=== PATIENT | female | born 1945 | race Caucasian/White ===

== ENCOUNTER 2019-11-28 13:27 | Emergency (ER) | payer MEDICARE ==
[~2019-11-28] VITALS: Ht 152.4 cm; Wt 74.4 kg
[~2019-11-28 13:27] MED LIST: ACYCLOVIR400 MG PO; ASPIR 8181 MG PO; CALCIUM600 MG PO; CITALOPRAM HBR40 MG PO; COZAAR100 MG PO; HYDROCHLOROTHIA25 MG PO; IMODIUM A-D2 MG PO; LEVOTHYROXINE100 MCG PO; LOPERAMIDE2 MG PO; POTASSIUM CHLO10 MEQ PO; SIMVASTATIN20 MG PO; TRIAMTERENE-HC1 EAC3 PO; TYLENOL325 MG PO
== END 2019-11-28 18:00 | disposition short-term general hospital (02) ==
LOC: ED 13:27
DX: I74.2 Embolism and thrombosis of arteries of the upper extremities (principal); I10 Essential (primary) hypertension; Z87.891 Personal history of nicotine dependence; Z90.710 Acquired absence of both cervix and uterus; Z90.49 Acquired absence of other specified parts of digestive tract; Z90.89 Acquired absence of other organs; Z88.5 Allergy status to narcotic agent; Z88.0 Allergy status to penicillin; Z79.82 Long term (current) use of aspirin; Z79.899 Other long term (current) drug therapy
CPT/HCPCS: 36415; 73206; 80053; 85025; 99284-25; J1644; Q9967

== ENCOUNTER 2020-02-27 09:42 | Emergency (ER) | payer MEDICARE ==
[~2020-02-27] VITALS: Ht 152.4 cm; Wt 74.4 kg
--- OUTSIDE RECORDS SUMMARY | ~2020-02-27 | XMS | Encounter Summary ---
Demographics + + + | Address | [address] | | | [place] [address] | + + + | Home Phone | | + + + | Preferred Language | Unknown | + + + | Marital Status | | + + + | Protestant Affiliation | Unknown | + + + | Race | Unknown | + + + | Ethnic Group | Unknown | + + + Author + + + | Author | [facility] | | | and [place] | + + + | Organization | [facility] | | | and [place] | + + + | Address | Unknown | + + + | Phone | Unavailable | + + + Support + + + + + | Name | Relationship | Address | Phone | + + + + + | Elysia Norris | ECON | [place] | | | | | [address] | | + + + + + | Art Askew | ECON | [address] | | | | | [place], [place] | | | | | [address] | | + + + + + Care Team Providers + +------+ + | Care Spray Operator Name | Role | Phone | + +------+ + | Wei Wright MD | PCP | | + +------+ + Encounter Details +--------+ + + + + | Date | Type | Department | Care Team | Description | +--------+ + + + + | 08/13/ | Abstract | [facility] [place] | [facility], | | | 2012 | | GASTROENTEROLOGY | [address] | | | | | [address] [place] | [address] | | | | | [address] [place], [place] | [place], [place] | | | | | [address] | [address] | | | | | [phone] | | | +--------+ + + + + Social History + +-------+ +--------+------+ | Tobacco Use | Types | Packs/Day | Years | Date | | | | | Used | | + +-------+ +--------+------+ | Former Smoker | | | | | + +-------+ +--------+------+ + +---+---+---+ | Smokeless Tobacco: | | | | | Never Used | | | | + +---+---+---+ + + +---------+ + | Alcohol Use | Drinks/Week | oz/Week | Comments | + + +---------+ + | Yes | | | | + + +---------+ + + + + | Sex Assigned at | Date Recorded | | | | + + + | Not on file | | + + + documented as of this encounter Plan of Treatment Not on filedocumented as of this encounter Visit Diagnoses Not on filedocumented in this encounter"
--- OUTSIDE RECORDS SUMMARY | ~2020-02-27 | XMS | Encounter Summary ---
Demographics + + + | Address | [address] | | | [place] [address] | + + + | Home Phone | | + + + | Preferred Language | Unknown | + + + | Marital Status | | + + + | Worship Affiliation | Unknown | + + + | Race | Unknown | + + + | Ethnic Group | Unknown | + + + Author + + + | Author | [facility] | | | and [place] | + + + | Organization | [facility] | | | and [place] | + + + | Address | Unknown | + + + | Phone | Unavailable | + + + Support + + + + + | Name | Relationship | Address | Phone | + + + + + | Elysia Norris | ECON | [place] | | | | | [address] | | + + + + + | Art Askew | ECON | [address] | | | | | [place], [place] | | | | | [address] | | + + + + + Care Team Providers + +------+ + | Care Music Box Mechanic Name | Role | Phone | + +------+ + | Wei Wright MD | PCP | | + +------+ + Reason for Visit + +--------+ + | Reason | Onset | Comments | | | Date | | + +--------+ + | Diarrhea | 11/14/ | | | | 2013 | | + +--------+ + Encounter Details +--------+ + + + + | Date | Type | Department | Care Team | Description | +--------+ + + + + | 11/14/ | Telephone | [facility] | Lonnie Ramires MD | Diarrhea | | 2013 | | GASTROENTEROLOGY | [address] | | | | | [address] [facility] | [address] [place], [place] | | | | | [address] [place], [place] | [address] | | | | | [address] | | | | | | [phone] | | | +--------+ + + + [...] + + documented as of this encounter Miscellaneous Notes Telephone Encounter - Antoinette Juárez RN - 11/16/2013 10:50 AM PDTSpoke with patient. She is taking the dicyclomine 10 mg in am and one imodium later in day. Continues to have urgency almost every day usually one time a day after she eats. Is not up at night with diarrhea. She feels the dicyclomine is helping as she will have normal formed stools but at times will have urgency with watery stools. She is not taking a probiotic so will trial analisa t and will increase the dicyclomine to BID. She is leaving on a cruise in 2 weeks. If urge ncy does not decrease she will call. She will also try to take the fiber tabs as she has sto pped them. eleph one Encounter - Willem Delgado - 11/14/2013 3:09 PM PDTPatient called to give an update on symptoms. States she takes 2 diphenoxylate each day, one in morning and one at night. Al so takes dicyclomine once in the morning and loperanide mid day. Pt has been on a trip for t he past 6 days, and states she had 2 bouts with diarrhea. She is keeping a record of what sh e's eating. Has not drank any wine in the past few days. States it's usually triggered right after she eats. She ate 3 tsp of macaroni salad today and within 30 min had diarrhea. Pt at e 5 saltine crackers and had diarrhea again within 30 minutes. Pt has not had any accidents, because she figured out it happens about 30 min after eating. Once today she had stomach c ramps. Patient will not be home after 12:30pm tomorrow 11/15/13, you can reach her on either phone number listed. doc umented in this encounter Plan of Treatment Not on filedocumented as of this encounter Visit Diagnoses Not on filedocumented in this encounter"
--- OUTSIDE RECORDS SUMMARY | ~2020-02-27 | XMS | Encounter Summary ---
Demographics + + + | Address | [address] | | | [place] [address] | + + + | Home Phone | | + + + | Preferred Language | Unknown | + + + | Marital Status | | + + + | Pentecostal Affiliation | Unknown | + + + | Race | Unknown | + + + | Ethnic Group | Unknown | + + + Author + + + | Author | [facility] | | | and [place] | + + + | Organization | [facility] | | | and [place] | + + + | Address | Unknown | + + + | Phone | Unavailable | + + + Support + + + + + | Name | Relationship | Address | Phone | + + + + + | Elysia Norris | ECON | [place] | | | | | [address] | | + + + + + | Art Askew | ECON | [address] | | | | | [place] | | | | | [address] | | + + + + + Care Team Providers + +------+ + | Care Mixing Machine Feeder Name | Role | Phone | + +------+ + | Wei Wright MD | PCP | | + +------+ + Reason for Visit + + + | Reason | Comments | + + + | Follow-up | follow up right hand carpal tunnel dos: 04/09/2012- | + + + | Hand Pain | EPNP: Trigger finger right ring finger onset xSeptember 2011- | | | Bumps in the hand as well | + + + Encounter Details +--------+---------+ + + + | Date | Type | Department | Care Team | Description | +--------+---------+ + + + | 12/21/ | Office | [facility] [place] | Blaine Aggarwal, | Trigger finger | | 2012 | Visit | ORTHOPEDIC SURGERY | [address] | (Primary Dx) | | | | [address] | [place] | | | | | [place] | [address] | | | | | [address] | | | | | | [phone] | | | +--------+---------+ + + + Social History + +-------+ [...] + + documented as of this encounter Last Filed Vital Signs + + + + + | Vital Sign | Reading | Time Taken | Comments | + + + + + | Blood Pressure | - | - | | + + + + + | Pulse | - | - | | + + + + + | Temperature | 36.7 C (98.1 F) | 12/21/2012 10:32 AM | | | | | PDT | | + + + + + | Respiratory Rate | - | - | | + + + + + | Oxygen Saturation | - | - | | + + + + + | Inhaled Oxygen | - | - | | | Concentration | | | | + + + + + | Weight | 72.1 kg (159 lb) | 12/21/2012 10:32 AM | | | | | PDT | | + + + + + | Height | 152.4 cm (5') | 12/21/2012 10:32 AM | | | | | PDT | | + + + + + | Body Mass Index | 31.05 | 12/21/2012 10:32 AM | | | | | PDT | | + + + + + documented in this encounter Progress Notes Blaine Aggarwal MD - 12/22/2012 7:52 AM PDTPt has done very well s/p right carpal tunnel release last march but is here with a new complaint of triggering right ring finger She states the symptoms starting actually fairly soon after her recovery from CTR She has no other digits that are triggering but 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 On exam she has reproducible triggering right ring finger with locking No other digits are triggering today Well healed CTR scar with thenar eminence atrophy and intact palmar abduction and oppositio n strength Impression - right ring trigger finger Plan - right ring trigger finger release procedure under local 10 minutes face time spent today majority counseling regarding treatment for trigger finger - alternative of injections, risks of procedure with reasonable expectations for recovery All questions answered Tdocumented in this encounter Miscellaneous Notes Miscellaneous - MATHIEU CASTANON - 12/21/2012 12:00 AM PDT documented in this encounter Plan of Treatment Not on filedocumented as of this encounter Visit Diagnoses + + | Diagnosis | + + | Trigger finger - Primary Trigger finger (acquired) | + + documented in this encounter"
--- OUTSIDE RECORDS SUMMARY | ~2020-02-27 | XMS | Encounter Summary ---
Demographics + + + | Address | [address] | | | [place] [address] | + + + | Home Phone | | + + + | Preferred Language | Unknown | + + + | Marital Status | | + + + | Orthodox Affiliation | Unknown | + + + | Race | Unknown | + + + | Ethnic Group | Unknown | + + + Author + + + | Author | [facility] | | | and [place] | + + + | Organization | [facility] | | | and [place] | + + + | Address | Unknown | + + + | Phone | Unavailable | + + + Support + + + + + | Name | Relationship | Address | Phone | + + + + + | Elysia Norris | ECON | [place] | | | | | [address] | | + + + + + | Art Rivera | ECON | [address] | | | | | [place], [place] | | | | | [address] | | + + + + + Care Team Providers + +------+ + | Care Manager Small Business Name | Role | Phone | + +------+ + | Wei Wright MD | PCP | | + +------+ + Encounter Details +--------+ + + + + | Date | Type | Department | Care Team | Description | +--------+ + + + + | 01/18/ | Hospital | [facility] | Jasen Blaine Gayle, | | | 2012 | Encounter | MED CTR [facility] OP | MD [address] [facility] | | | | | [address] | [place], [place] | | | | | [place], [place] | [address] | | | | | [address] | | | | | | [phone] | | | +--------+ + + + [...] + + documented as of this encounter Medications at Time of Discharge + + + +---------+ + + | Medication | Sig | Dispensed | Refills | Start | End Date | | | | | | Date | | + + + +---------+ + + | acyclovir | Take 400 mg by mouth | | 0 | 11/27/19 | | | (ZOVIRAX) 400 MG | Daily. | | | 13 | | | tablet | | | | | | + + + +---------+ + + | CALCIUM PO | TABS | | 0 | 05/11/20 | | | | | | | 12 | | + + + +---------+ + + | cholestyramine | take one scoop in | | 0 | 02/23/20 | | | (QUESTRAN) 4 GM/DOSE | applesauce at | | | 11 | | | powder | bedtime | | | | | + + + +---------+ + + | | TABS | | 0 | 05/11/20 | | | HYDROCHLOROTHIAZIDE | | | | 12 | | | PO | | | | | | + + + +---------+ + + | LEVOTHYROXINE | Take 100 mcg by | | 0 | 05/11/20 | | | SODIUM | mouth Daily. | | | 12 | | + + + +---------+ + + | loperamide | | | 0 | 10/01/19 | | | (IMODIUM) 2 mg | | | | 13 | | | capsule | | | | | | + + + +---------+ + + | losartan (COZAAR) | Take 50 mg by mouth | | 0 | 05/11/20 | | | 50 mg tablet | Daily. | | | 12 | | + + + +---------+ + + | potassium chloride | Take 10 mEq by mouth | | 0 | 10/13/19 | | | (MICRO-K) 10 mEq CR | Daily. | | | 13 | | | capsule | | | | | | + + + +---------+ + + | simvastatin | Take 40 mg by mouth | | 0 | 05/11/20 | | | (ZOCOR) 40 mg tablet | Daily. | | | 12 | | + + + +---------+ + + | | | | 0 | 11/27/19 | | | triamterene-hydrochl | | | | 13 | | | orothiazide | | | | | | | (MAXZIDE-25) 37.5-25 | | | | | | | mg per tablet | | | | | | + + + +---------+ + + | citalopram | | | 0 | 11/28/19 | | | (CELEXA) 20 mg | | | | 13 | 3 | | tablet | | | | | | + + + +---------+ + + | | take 1-2 tablets by | | 0 | 04/06/20 | | | HYDROcodone-acetamin | mouth every 6 hours | | | 12 | 3 | | ophen (NORCO) 5-325 | as needed for pain | | | | | | mg per tablet | | | | | | + + + +---------+ + + | LEVOTHYROXINE | TABS | | 0 | 05/11/20 | | | SODIUM | | | | 12 | 3 | + + + +---------+ + + | Methylcellulose, | TABS | | 0 | 05/11/20 | | | Laxative, (CITRUCEL | | | | 12 | 3 | | PO) | | | | | | + + + +---------+ + + documented as of this encounter H&P Notes Blaine Aggarwal MD - 01/18/2013 8:22 AM [place], [place] [id number] Patient Name: MARILEE RIVERA Provider: Blaine Aggarwal MD Unit #: [id number] Location: [facility] #: [id number] : 1945 DATE: PREOPERATIVE HISTORY AND PHYSICAL DATE OF PROCEDURE: 01/18/2013 PATIENT IDENTIFICATION: Ms. Rivera is a 67-year-old female with a chief complaint of right ring trigger finger. HISTORY OF PRESENT ILLNESS: The patient is status post a right carpal tunnel release in 03/2012 and shortly after her recovery from that, she noted the onset of triggering in her r ing finger. 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 The triggering at first was intermittent a nd mild but has progressed to be significantly bothersome to her with daily locking, and anne quiñonez now wishes to proceed with right ring trigger finger release. PREVIOUS MEDICAL HISTORY 1. Hypertension. 2. Hypercholesterolemia. 3. Depression. CURRENT MEDICATION LIST: Includes 1. Celexa 20 mg p.o. daily. 2. Potassium chloride 10 mEq p.o. daily 3. Maxzide 37.5/25 one a day. 4. Cozaar 50 mg p.o. daily. 5. Zocor 40 mg p.o. daily. 6. Questran 4 g a day. ALLERGIES 1. PENICILLIN. 2. MORPHINE. 3. CODEINE. PREVIOUS SURGERIES 1. Hysterectomy in 1992. 2. Cholecystectomy last year. 3. Appendectomy 1963. 4. Right carpal tunnel release 03/2012. FAMILY HISTORY: Father at age 71 of liver failure. Mother age 58 of lymphoma. SOCIAL: She is with 3 children. She is healthy. Moderate consumer of alcohol. S he quit smoking 18 years ago. PHYSICAL EXAMINATION VITAL SIGNS: Temperature 122/80, pulse 64, respirations 14. HEENT: Atraumatic. Oropharynx clear. HEART: Regular rate and rhythm. LUNGS: Clear. ABDOMEN: Soft, nontender. EXTREMITIES: She has reproducible triggering of the right ring finger with locking. There are no other digits that are triggering. She has a well healed carpal tunnel release scar with positive thenar eminence atrophy, but intact palmar abduction and opposition. SKIN: Without rashes or lesions. IMPRESSION RIGHT RING TRIGGER FINGER. PLAN: Right ring trigger finger release. The goals of the surgery, the inherent risks and reasonable expectations for recovery are all discussed with the patient who understands and agrees with the plan. DICTATED BY: Blaine Aggarwal MD Orthopedics JOB #: [id number] EXT JOB #:[id number] <<Signature on File>> Blaine Aggarwal MD0 01/23/13 1021 <Electronically signed by Blaine Aggarwal MD> documented in this encounter Miscellaneous Notes Op Note - Blaine Aggarwal MD - 01/18/2013 12:59 [place] [address] Patient Name: MARILEE RIVERA Provider: Blaine Aggarwal MD Unit #: [id number] [id number] 1945 DATE: 01/18/2013 PREOPERATIVE DIAGNOSIS Right hand ring trigger finger. POSTOPERATIVE DIAGNOSIS RIGHT HAND RING TRIGGER FINGER. PROCEDURE PERFORMED: Right hand trigger finger release, ring finger. PROCEDURE IN DETAIL: After informed consent was obtained, the patient was taken to the ope rating room , appropriate timeout and surgical site was confirmed and surgical safety check list was completed. She underwent purely local anesthesia. After sterile prep and drape, an incision was made in her distal palmar crease centered over the 4th ray. A blunt dissectio n to the midline was carried out, and the neurovascular bundles protected with Ragnell retr actors. The A1 parker was identified. We incised the sheath and got a flush of fluid as thi s was inflamed. The A1 parker was release completely under direct vision, and with active f lexion and extension, it proved the triggering was resolved. This wound was irrigated and c losed with 4-0 nylon interrupted mattress sutures. sterile dressings were applied with a bu lky compressive hand bandage, and she was stable to Postanesthesia Recovery. Estimated bloo d loss less than 10 mL. DICTATED BY: Blaine Aggarwal MD Orthopedics JOB #: [id number] EXT JOB #:[id number] <<Signature on File>> Blaine Aggarwal MD0 01/23/13 1021 <Electronically signed by Blaine Aggarwal MD> documented in this encounter Plan of Treatment Not on filedocumented as of this encounter Visit Diagnoses Not on filedocumented in this encounter"
--- OUTSIDE RECORDS SUMMARY | ~2020-02-27 | XMS | Clinical Summary ---
Demographics + + + | Address | [address] | | | [place] [address] | + + + | Home Phone | | + + + | Preferred Language | Unknown | + + + | Marital Status | | + + + | Congregational Affiliation | Unknown | + + + | Race | Unknown | + + + | Ethnic Group | Unknown | + + + Author + + + | Author | [facility] | | | and [place] | + + + | Organization | [facility] | | | and [place] | + + + | Address | Unknown | + + + | Phone | Unavailable | + + + Support + + + + + | Name | Relationship | Address | Phone | + + + + + | Elysia Norris | ECON | [place] | | | | | [address] | | + + + + + | Art Askew | ECON | [address] | | | | | [place], [place] | | | | | [address] | | + + + + + Care Team Providers + +------+ + | Care Plastic Machine Operator Name | Role | Phone | + +------+ + | Wei Wright MD | PCP | | + +------+ + Allergies + + + +--------+ + | Active Allergy | Reactions | Severity | Noted | Comments | | | | | Date | | + + + +--------+ + | Codeine Sulfate | | | | | + + + +--------+ + | Morphine | | | | | + + + +--------+ + | Penicillins | | | | | + + + +--------+ + Medications + + + +---------+------+------+-------+ | Medication | Sig | Dispensed | Refills | Star | End | Statu | | | | | | t | Date | s | | | | | | Date | | | + + + +---------+------+------+-------+ | losartan (COZAAR) | Take 50 mg by mouth | | 0 | 09/1 | | Activ | | 50 mg tablet | Daily. | | | 3/20 | | e | | | | | | 12 | | | + + + +---------+------+------+-------+ | simvastatin | Take 40 mg by mouth | | 0 | 09/1 | | Activ | | (ZOCOR) 40 mg tablet | Daily. | | | 3/20 | | e | | | | | | 12 | | | + + + +---------+------+------+-------+ | | TABS | | 0 | 09/1 | | Activ | | HYDROCHLOROTHIAZIDE | | | | 3/20 | | e | | PO | | | | 12 | | | + + + +---------+------+------+-------+ | CALCIUM PO | TABS | | 0 | 09/1 | | Activ | | | | | | 3/20 | | e | | | | | | 12 | | | + + + +---------+------+------+-------+ | cholestyramine | take one scoop in | | 0 | 06/2 | | Activ | | (QUESTRAN) 4 GM/DOSE | applesauce at | | | 03/17 | | e | | powder | bedtime | | | 11 | | | + + + +---------+------+------+-------+ | acyclovir | Take 400 mg by mouth | | 0 | 10/29 | | Activ | | (ZOVIRAX) 400 MG | Daily. | | | 09/17 | | e | | tablet | | | | 13 | | | + + + +---------+------+------+-------+ | potassium chloride | Take 10 mEq by mouth | | 0 | 02/1 | | Activ | | (MICRO-K) 10 mEq CR | Daily. | | | 01/15 | | e | | capsule | | | | 13 | | | + + + +---------+------+------+-------+ | loperamide | | | 0 | 02/0 | | Activ | | (IMODIUM) 2 mg | | | | 11/15 | | e | | capsule | | | | 13 | | | + + + +---------+------+------+-------+ | | | | 0 | 03/3 | | Activ | | triamterene-hydrochl | | | | 1/20 | | e | | orothiazide | | | | 13 | | | | (MAXZIDE-25) 37.5-25 | | | | | | | | mg per tablet | | | | | | | + + + +---------+------+------+-------+ | LEVOTHYROXINE | Take 100 mcg by | | 0 | 09/1 | | Activ | | SODIUM | mouth Daily. | | | 3/20 | | e | | | | | | 12 | | | + + + +---------+------+------+-------+ | citalopram | Take 20 mg by mouth | | 0 | | | Activ | | (CELEXA) 20 mg | Daily. | | | | | e | | tablet | | | | | | | + + + +---------+------+------+-------+ | | Take 1 capsule by | | 0 | | | Activ | | triamterene-hydrochl | mouth every morning. | | | | | e | | orothiazide | | | | | | | | (DYAZIDE) 37.5-25 MG | | | | | | | | per capsule | | | | | | | + + + +---------+------+------+-------+ | Na Sulfate-K | Take 6 oz by mouth 2 | 1 | 0 | 12/1 | | Activ | | Sulfate-Mg Sulf | times daily. Take | Bottle | | 7/20 | | e | | (SUPREP BOWEL PREP) | 1st dose at 4PM And | | | 13 | | | | SOLN | 2nd dose at 8PM. The | | | | | | | | day prior to | | | | | | | | procedure | | | | | | + + + +---------+------+------+-------+ | dicyclomine | Take 1 capsule by | 30 | 0 | 01/3 | | Activ | | (BENTYL) 10 mg | mouth every morning. | capsule | | 0/20 | | e | | capsule | | | | 14 | | | + + + +---------+------+------+-------+ Active Problems + + + | Problem | Noted Date | + + + | CHOLECYSTITIS | | + + + | CHOLESTEROLOSIS OF THE GALLBLADDER | | + + + | POLYP, GALLBLADDER | | + + + Family History + + +------+ + | Medical History | Relation | Name | Comments | + + +------+ + | Alcohol abuse | Father | | | + + +------+ + | Cancer | Mother | | lymphoma | + + +------+ + | Breast cancer | Sister | | | + + +------+ + + +------+ + + | Relation | Name | Status | Comments | + +------+ + + | Father | | | | | | | (Age | | | | | 80) | | + +------+ + + | Mother | | | lymphoma | | | | (Age | | | | | 57) | | + +------+ + + | Sister | | Alive | | + +------+ + + Social History + +-------+ +--------+------+ [...] on file | | + + + Last Filed Vital Signs + + + + + | Vital Sign | Reading | Time Taken | Comments | + + + + + | Blood Pressure | 140/76 | 08/14/2013 8:32 AM | | | | | PST | | + + + + + | Pulse | 68 | 08/14/2013 8:32 AM | | | | | PST | | + + + + + | Temperature | 36.4 C (97.5 F) | 08/14/2013 8:32 AM | | | | | PST | | + + + + + | Respiratory Rate | 16 | 08/14/2013 8:32 AM | | | | | PST | | + + + + + | Oxygen Saturation | - | - | | + + + + + | Inhaled Oxygen | - | - | | | Concentration | | | | + + + + + | Weight | 75.8 kg (167 lb) | 08/14/2013 8:32 AM | | | | | PST | | + + + + + | Height | 152.4 cm (5') | 08/14/2013 8:32 AM | | | | | PST | | + + + + + | Body Mass Index | 32.61 | 08/14/2013 8:32 AM | | | | | PST | | + + + + + Plan of Treatment + + +-------+ + | Health Maintenance | Due Date | Last | Comments | | | | Done | | + + +-------+ + | Vaccine: | | | | | Dtap/Tdap/Td (1 - | 3 | | | | Tdap) | | | | + + +-------+ + | Vaccine: Zoster (1 | | | | | of 2) | 4 | | | + + +-------+ + | Breast Cancer | | | | | Screening | 9 | | | + + +-------+ + | Vaccine: | | | | | Pneumococcal 65+ (1 | 9 | | | | of 1 - PPSV23) | | | | + + +-------+ + | Vaccine: Influenza | | | | | (#1) | 0 | | | + + +-------+ + Results Not on filefrom Last 3 Months Advance Directives + + + + + | Type | Date Recorded | Patient | Explanation | | | | Creative Writing English Professor | | + + + + + | Power of | | | | | Refrigerator Repairman | | | | + + + + + | Advance | | | | | Directive | | | | + + + + +"
--- OUTSIDE RECORDS SUMMARY | ~2020-02-27 | XMS | Encounter Summary ---
Demographics + + + | Address | [address] | | | [place] [address] | + + + | Home Phone | | + + + | Preferred Language | Unknown | + + + | Marital Status | | + + + | Catholic Affiliation | Unknown | + + + | Race | Unknown | + + + | Ethnic Group | Unknown | + + + Author + + + | Author | [facility] | | | and [place] | + + + | Organization | [facility] | | | and [place] | + + + | Address | Unknown | + + + | Phone | Unavailable | + + + Support + + + + + | Name | Relationship | Address | Phone | + + + + + | Elysia Norris | ECON | [place] | | | | | [address] | | + + + + + | Art Askew | ECON | [address] | | | | | [place], [place] | | | | | [address] | | + + + + + Care Team Providers + +------+ + | Care Bed Manager Name | Role | Phone | + +------+ + | Wei Wright MD | PCP | | + +------+ + Encounter Details +--------+ + + + + | Date | Type | Department | Care Team | Description | +--------+ + + + + | 08/20/ | Hospital | [facility] | Lonnie Ramires MD | | | 2013 | Encounter | [facility] | [address], [place] | | | | | [address] | [address] [place], [place] | | | | | [place], [place] | [address] | | | | | [address] | | | | | | [phone] | | | +--------+ + + + [...] + +---------+ + + | citalopram | Take 20 mg by mouth | | 0 | | | | (CELEXA) 20 mg | Daily. | | | | | | tablet | | | [...] + + + +---------+ + + | Na Sulfate-K | Take 6 oz by mouth 2 | 1 | 0 | 08/14/20 | | | Sulfate-Mg Sulf | times daily. Take | Bottle | | 13 | | | (SUPREP BOWEL PREP) | 1st dose at 4PM And | | | | | | SOLN | 2nd dose at 8PM. The | | | | | | | day prior to | | | | | | | procedure | | | | | + + [...] + + +---------+ + + | | Take 1 capsule by | | 0 | | | | triamterene-hydrochl | mouth every morning. | | | | | | orothiazide | | | [...] documented as of this encounter Miscellaneous Notes Op Note - Lonnie Ramires MD - 08/20/2013 11:46 [place] [address] Patient Name: MIGUELELIZABETHMARYANN Renaldo Provider: Lonnie Ramires MD Unit #: [id number] Location: [facility] : 1945 Gastroenterology Patient Name: Maryann Askew Procedure Date: 08/20/2013 11:46 AM Date of : 1945 Admit Type: Outpatient Age: 67 Room: Endo Room 1 Gender: Female Note Status: Finalized Attending MD: Lonnie Ramires MD Procedure: Colonoscopy Indications: Clinically significant diarrhea of unexplained origin, Fecal incontinence Providers: Lonnie Ramires MD, April Bond, RN, Sabine Montoya, Accounting Technician Referring MD: Wei Wright MD (Referring MD) Medicines: Midazolam 5 mg IV, Meperidine 100 mg IV, Oxygen 5 liters/min nasocannula Complications: No immediate complications. Procedure: Pre-Anesthesia Assessment: - Prior to the procedure, a History and Physical was performed, and patient medications, allergies and sensitivities were reviewed. The patient's tolerance of previous anesthesia was reviewed. - Prior to the procedure, a History and Physical was performed, and patient medications and allergies were reviewed. The patient is competent. The risks and benefits of the procedure and the sedation options and risks were discussed with the patient. All questions were answered and informed consent was obtained. Patient identification and proposed procedure were verified by the physician, the nurse and the renewable energy technician in the endoscopy suite. Mental Status Examination: normal. Airway Examination: small/crowded oropharyngeal airway and Mallampati Class III (part of the uvula and soft palate visualized). Respiratory Examination: CV Examination: Prophylactic Antibiotics: The patient does not require prophylactic antibiotics. Prior Anticoagulants: The patient has taken no previous anticoagulant or antiplatelet agents. ASA Grade Assessment: II - A patient with mild systemic disease. After reviewing the risks and benefits, the patient was deemed in satisfactory condition to undergo the procedure. The anesthesia plan was to use moderate sedation / analgesia (conscious sedation). Immediately prior to administration of medications, the patient was re-assessed for adequacy to receive sedatives. The heart rate, respiratory rate, oxygen saturations, blood pressure, adequacy of pulmonary ventilation, and response to care were monitored throughout the procedure. The physical status of the patient was re-assessed after the procedure. - After reviewing the risks and benefits, the patient was deemed in satisfactory condition to undergo the procedure. - Immediately prior to administration of medications, the patient was re-assessed for adequacy to receive sedatives. - The heart rate, respiratory rate, oxygen saturations, blood pressure, adequacy of pulmonary ventilation, and response to care were monitored throughout the procedure. - The physical status of the patient was re-assessed after the procedure. After I obtained informed consent, the scope was passed under direct vision. Throughout the procedure, the patient's blood pressure, pulse, and oxygen saturations were monitored continuously. The endoscope was introduced through the anus and advanced to the cecum, identified by the appendiceal orifice, ileocecal valve and palpation. The colonoscopy was somewhat difficult due to restricted mobility of the colon, significant looping and a tortuous colon. Successful completion of the procedure was aided by using manual pressure, straightening and shortening the scope to obtain bowel loop reduction and using scope torsion. The patient tolerated the procedure well. The quality of the bowel preparation was fair except cecum was poor. Findings: The perianal and digital rectal examinations were normal. Pertinent negatives include normal sphincter tone and no palpable rectal lesions. Many medium-mouthed diverticula were found in the sigmoid colon. There was narrowing of the colon in association with the diverticular opening. There was evidence of diverticular spasm. There was no evidence of diverticular bleeding. The sigmoid colon and descending colon were moderately tortuous. Biopsies were taken with a cold forceps for histology. Verification of patient identification for the specimen was done. Estimated blood loss was minimal. A moderate amount of semi-liquid semi-solid stool was found in the descending colon, in the transverse colon, in the ascending colon and in the cecum, interfering with visualization. Lavage of the area was performed using copious amounts, resulting in incomplete clearance with fair visualization. The retroflexed view of the distal rectum and anal verge was normal and showed no anal or rectal abnormalities. Impression: - Mild diverticulosis in the sigmoid colon. There was narrowing of the colon in association with the diverticular opening. There was evidence of diverticular spasm. There was no evidence of diverticular bleeding. - Tortuous colon. Biopsied. - Stool in the descending colon, in the transverse colon, in the ascending colon and in the cecum. - The distal rectum and anal verge are normal on retroflexion view. Recommendation : - Discharge patient to home (ambulatory). - Return to previous diet today. - Continue present medications. - Await pathology results. - Return to primary care physician as previously scheduled. - Telephone GI clinic for pathology results in 1 week. Lonnie Ramires MD 08/20/2013 12:30 PM This report has been signed electronically. Number of Addenda: 0 Note Initiated On: 08/20/2013 11:46 AM [facility], [address] [facility], [place] [address] Lonnie Ramires MD [id number] documented in this e ncounter Plan of Treatment Not on filedocumented as of this encounter Procedures + +--------+ + + + | Procedure Name | Priori | Date/Time | Associated Diagnosis | Comments | | | ty | | | | + +--------+ + + + | OCCULT BLOOD, STOOL, | Routin | 08/20/2013 | | Results for this | | FOR COLORECTAL | e | 1:07 PM | | procedure are in the | | NEOPLASM SCREENING | | PST | | results section. | + +--------+ + + + | OCCULT BLOOD, STOOL, | Routin | 08/20/2013 | | Results for this | | FOR COLORECTAL | e | 1:07 PM | | procedure are in the | | NEOPLASM SCREENING | | PST | | results section. | + +--------+ + + + | OVA AND PARASITE | Routin | 08/20/2013 | | Results for this | | EXAMINATION | e | 1:07 PM | | procedure are in the | | | | PST | | results section. | + +--------+ + + + | CRYPTOSPORIDIUM AG | Routin | 08/20/2013 | | Results for this | | | e | 1:07 PM | | procedure are in the | | | | PST | | results section. | + +--------+ + + + | FECAL LEUKOCYTES | Routin | 08/20/2013 | | Results for this | | | e | 1:07 PM | | procedure are in the | | | | PST | | results section. | + +--------+ + + + | FECAL LEUKOCYTES | Routin | 08/20/2013 | | Results for this | | | e | 1:07 PM | | procedure are in the | | | | PST | | results section. | + +--------+ + + + | GIARDIA AG, EIA, | Routin | 08/20/2013 | | Results for this | | STOOL | e | 1:07 PM | | procedure are in the | | | | PST | | results section. | + +--------+ + + + | CULTURE, STOOL | Routin | 08/20/2013 | | Results for this | | | e | 1:07 PM | | procedure are in the | | | | PST | | results section. | + +--------+ + + + documented in this encounter Results Occult Blood, Stool, 1-3 Specimen(s) (08/20/2013 1:07 PM PST) + + + + + + | Component | Value | Ref Range | Performed | Pathologist | | | | | At | Signature | + + + + + + | FECAL | 08/20/13 | | [facility] | | | OCCULT BLD | | | [facility] | | | | Negative | | MEDICAL | | | | | | CENTER - | | | | | | LABORATORY | | + + + + + + + + | Specimen | + + | | + + + + + + + | Performing | Address | City/State/Zipcode | Phone Number | | Organization | | | | + + + + + | [facility] | [address] | [place], [place] | [phone] | | [facility] | | [address] | | | - LABORATORY | | | | + + + + + | [facility] | [address] | [place] | | | [facility] | | [address] | | | - LABORATORY | | | | + + + + + Fecal leukocytes (08/20/2013 1:07 PM PST) + + + + + + | Component | Value | Ref Range | Performed | Pathologist | | | | | At | Signature | + + + + + + | Source | STOOL | | [facility] | | | | | | [facility] | | | | | | MEDICAL | | | | | | CENTER - | | | | | | LABORATORY | | + + + + + + | Fecal | NONE SEEN | | [facility] | | | Leukocytes | | | [facility] | | | | | | MEDICAL | | | | | | CENTER - | | | | | | LABORATORY | | + + + + + + + + | Specimen | + + | | + + + + + + + | Performing | Address | City/State/Zipcode | Phone Number | | Organization | | | | + + + + + | [facility] | [address] | [place] | [phone] | | [facility] | | [address] | | | - LABORATORY | | | | + + + + + | [facility] | [address] | [place] | | | [facility] | | [address], [facility] | | | - LABORATORY | | | | + + + + + Ova and Parasite Examination (08/20/2013 1:07 PM PST) + + + + + + | Component | Value | Ref Range | Performed | Pathologist | | | | | At | Signature | + + + + + + | Ova + | SEE BELOW | | [facility] | | | Parasite | | | [facility] | | | Exam | | | MEDICAL | | | | | | CENTER - | | | | | | LABORATORY | | + + + + + + | Specimen | SEE BELOW | | [facility] | | | Status | | | [facility] | | | | | | MEDICAL | | | | | | CENTER - | | | | | | LABORATORY | | + + + + + + + + | Specimen | + + | Other - Other | + + + + + + + | Performing | Address | City/State/Zipcode | Phone Number | | Organization | | | | + + + + + | [facility] | [address] | [place], [place] | [phone] | | [facility] | | [address] | | | - LABORATORY | | | | + + + + + | [facility] | [address] | [place], [place] | | | [facility] | | [id number] [place] [address] | | | - LABORATORY | | | | + + + + + Occult Blood, Stool, 1-3 Specimen(s) (08/20/2013 1:07 PM PST) + + + + + + | Component | Value | Ref Range | Performed | Pathologist | | | | | At | Signature | + + + + + + | FECAL | Date: | | [facility] | | | OCCULT BLD | 08/20/13 | | [facility] | | | | Card #1 Occult Blood: | | MEDICAL | | | | Negative | | CENTER - | | | | | | LABORATORY | | + + + + + + + + | Specimen | + + | Other - Other | + + + + + + + | Performing | Address | City/State/Zipcode | Phone Number | | Organization | | | | + + + + + | [facility] | [address] | [place] | [phone] | | [facility] | | [address] | | | - LABORATORY | | | | + + + + + | [facility] | [address] | [place], [place] | | | [facility] | | [address], [facility] | | | - LABORATORY | | | | + + + + + Cryptosporidium Ag (08/20/2013 1:07 PM PST) + + + + + + | Component | Value | Ref Range | Performed | Pathologist | | | | | At | Signature | + + + + + + | Cryptospori | Negative for | | [facility] | | | dium | Cryptosporidium Antigen | | [facility] | | | Antigen | by Rapid Immunoassay | | MEDICAL | | | | testing. | | CENTER - | | | | | | LABORATORY | | + + + + + + + + | Specimen | + + | Other - Other | + + + + + + + | Performing | Address | City/State/Zipcode | Phone Number | | Organization | | | | + + + + + | [facility] | [address] | [place] | [phone] | | [facility] | | [address] | | | - LABORATORY | | | | + + + + + | [facility] | [address] | [place] | | | [facility] | | [address], [facility] | | | - LABORATORY | | | | + + + + + Giardia Ag, EIA, Stool (08/20/2013 1:07 PM PST) + + + + + + | Component | Value | Ref Range | Performed | Pathologist | | | | | At | Signature | + + + + + + | Giardia | Negative for Giardia | | [facility] | | | Antigen, | Lamblia Antigen by Rapid | | [facility] | | | Stool | Immunoassay. | | MEDICAL | | | |by Rapid Immunoassay. | | CENTER - | | | | | | LABORATORY | | + + + + + + + + | Specimen | + + | Other - Other | + + + + + + + | Performing | Address | City/State/Zipcode | Phone Number | | Organization | | | | + + + + + | [facility] | [address] | [place], [place] | [phone] | | [facility] | | [address] | | | - LABORATORY | | | | + + + + + | [facility] | [address] | [place], [place] | | | [facility] | | [facility], [facility] | | | - LABORATORY | | | | + + + + + Culture, Stool (08/20/2013 1:07 PM PST) + + + + + -+ | Component | Value | Ref Range | Performed | Pathologist | | | | | At | Signature | + + + + + -+ | Gram Stain | GRAM STAIN: | | [facility] | | | Result | MIXED INDIGENOUS DANE | | [facility] | | | | | | MEDICAL | | | | | | CENTER - | | | | | | LABORATORY | | + + + + + -+ | Culture, | Indig/Dane | | [facility] | | | stool | (Reportable)Few Mixed | | [facility] | | | | Indigenous Dane No | | MEDICAL | | | | Salmonella, Shigella, | | CENTER - | | | | Aeromonas, Pleisiomonas | | LABORATORY | | | | or Yersinia | | | | | | isolated.Final Report | | | | | | (Reportable)- | | | | + + + + + -+ | E coli, | Negative for Shiga | | [facility] | | | Shiga toxin | Toxin-producing strain | | [facility] | | | Assay | of Escherichia coli | | MEDICAL | | | | (STEC). Physician Note: | | CENTER - | | | | Symptoms of STEC are not | | LABORATORY | | | | well differentiated and | | | | | | may resemble | | | | | | Appendicitis, | | | | | | Inflammatory Bowel | | | | | | Disease, Infectious | | | | | | Colitis, and C. | | | | | | Difficile Associated | | | | | | Disease.RESULT:NEGATIVE | | | | | |and C. Difficile Associated Disease. | | | | | |RESULT: | | | | | |NEGATIVE | | | | + + + + + -+ | Campylobact | Negative for | | [facility] | | | er Ag | CAMPYLOBACTER | | [facility] | | | | SPECIES.RESULT:NEGATIVE | | MEDICAL | | | |NEGATIVE | | CENTER - | | | | | | LABORATORY | | + + + + + -+ + + | Specimen | + + | Other - Other | + + + + + + + | Performing | Address | City/State/Zipcode | Phone Number | | Organization | | | | + + + + + | [facility] | [address] | [place], [place] | [phone] | | [facility] | | [address] | | | - LABORATORY | | | | + + + + + | [facility] | [address] | [place], [place] | | | [facility] | | [id number] [place] [address] | | | - LABORATORY | | | | + + + + + Fecal leukocytes (08/20/2013 1:07 PM PST) + + + + + + | Component | Value | Ref Range | Performed | Pathologist | | | | | At | Signature | + + + + + + | Source | STOOL | | [facility] | | | | | | [facility] | | | | | | MEDICAL | | | | | | CENTER - | | | | | | LABORATORY | | + + + + + + | Fecal | NONE SEEN | | [facility] | | | Leukocytes | | | [facility] | | | | | | MEDICAL | | | | | | CENTER - | | | | | | LABORATORY | | + + + + + + + + | Specimen | + + | | + + + + + + + | Performing | Address | City/State/Zipcode | Phone Number | | Organization | | | | + + + + + | [facility] | [address] | [place] | [phone] | | [facility] | | [address] | | | - LABORATORY | | | | + + + + + | [facility] | [address] | [place] | | | [facility] | | [phone] [place] [address] | | | - LABORATORY | | | | + + + + + documented in this encounter Visit Diagnoses Not on filedocumented in this encounter"
--- OUTSIDE RECORDS SUMMARY | ~2020-02-27 | XMS | Encounter Summary ---
Demographics + + + | Address | [address] | | | [place] [address] | + + + | Home Phone | | + + + | Preferred Language | Unknown | + + + | Marital Status | | + + + | Latter-Day Affiliation | Unknown | + + + | Race | Unknown | + + + | Ethnic Group | Unknown | + + + Author + + + | Author | [facility] | | | and [place] | + + + | Organization | [facility] | | | and [place] | + + + | Address | Unknown | + + + | Phone | Unavailable | + + + Support + + + + + | Name | Relationship | Address | Phone | + + + + + | Elysia Norris | ECON | [place] | | | | | [address] | | + + + + + | Art Askew | ECON | [address] | | | | | [place], [place] | | | | | [address] | | + + + + + Care Team Providers + +------+ + | Care Information Security Risk Analyst Name | Role | Phone | + +------+ + | Wei Wright MD | PCP | | + +------+ + Encounter Details +--------+ + + + + | Date | Type | Department | Care Team | Description | +--------+ + + + + | 08/08/ | Abstract | [facility] [place] | [facility], | | | 2012 | | GASTROENTEROLOGY | [address] | | | | | [address] [place] | [address] | | | | | [address] [place], [place] | [place], [place] | | | | | [address] | [address] | | | | | [phone] | | | +--------+ + + + [...]
--- OUTSIDE RECORDS SUMMARY | ~2020-02-27 | XMS | Encounter Summary ---
Demographics + + + | Address | [address] | | | [place] [address] | + + + | Home Phone | | + + + | Preferred Language | Unknown | + + + | Marital Status | | + + + | Christian Affiliation | Unknown | + + + | Race | Unknown | + + + | Ethnic Group | Unknown | + + + Author + + + | Author | [facility] | | | and [place] | + + + | Organization | [facility] | | | and [place] | + + + | Address | Unknown | + + + | Phone | Unavailable | + + + Support + + + + + | Name | Relationship | Address | Phone | + + + + + | Elysia Norris | ECON | [place] | | | | | [address] | | + + + + + | Art Askew | ECON | [address] | | | | | [place], [place] | | | | | [address] | | + + + + + Care Team Providers + +------+ + | Care Manager Deli Name | Role | Phone | + +------+ + | Wei Wright MD | PCP | | + +------+ + Reason for Visit + +--------+ + | Reason | Onset | Comments | | | Date | | + +--------+ + | 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 She has intermittent fecal incontinence. She reports "it hits her about once a week" has stomach cramps. and sometimes has warning but not always. Sometimes she gets to the bathroom in time and last week she did not. Fiber supplements helps and she is taking a probiotic . She will increase dose of dycyclomine and imodium and will make f/u appt if needed. Elect ronically signed by Antoinette Juárez RN at 05/20/2014 1:57 PM PDTTelephone Encounter - Willem Delgado - 05/20/2014 10:46 AM PDTPatient called to give update on symptoms. State s she has started to have diarrhea every day, she has also had some accidents again. Patient would like a nurse to call to discuss further. Electronically signed by Willem jonas 05/20/2014 10:48 AM PDTdocumented in this encounter Plan of Treatment Not on filedocumented as of this encounter Visit Diagnoses Not on filedocumented in this encounter
--- OUTSIDE RECORDS SUMMARY | ~2020-02-27 | XMS | Encounter Summary ---
Demographics + + + | Address | [address] | | | [place] [address] | + + + | Home Phone | | + + + | Preferred Language | Unknown | + + + | Marital Status | | + + + | Anabaptism Affiliation | Unknown | + + + | Race | Unknown | + + + | Ethnic Group | Unknown | + + + Author + + + | Author | [facility] | | | and [place] | + + + | Organization | [facility] | | | and [place] | + + + | Address | Unknown | + + + | Phone | Unavailable | + + + Support + + + + + | Name | Relationship | Address | Phone | + + + + + | Elysia Norris | ECON | [place] | | | | | [address] | | + + + + + | Art Askew | ECON | [address] | | | | | [place], [place] | | | | | [address] | | + + + + + Care Team Providers + +------+ + | Care Legal Billing Specialist Name | Role | Phone | + +------+ + | Wei Wright MD | PCP | | + +------+ + Reason for Referral Evaluate & Treat (Routine) +--------+ + + + + + | Status | Reason | Specialty | Diagnoses / | Referred By | Referred To | | | | | Procedures | Contact | Contact | +--------+ + + + + + | Closed | Specialty | Gastroenterol | Diagnoses | | Harri, | | | Services | ogy | Diarrhea | [place], | Lonnie Araujo MD | | | Required | | Procedures | Negar, | [address], | | | | | [place] | [employer] TRA[employer]ER [address] | [address] | | | | | COLONOSCOPY, | [address] | [place], | | | | | DIAGNOSTIC | [address] | [place] [address] | | | | | [place] | [place], | Phone: | | | | | COLONOSCOPY, | [place] [address] | [phone] | | | | | BIOPSY | Phone: | Fax: | | | | | | [phone] | [phone] | | | | | | Fax: | | | | | | | [phone] | | +--------+ + + + + + Reason for Visit + + + | Reason | Comments | + + + | Diarrhea | | + + + Evaluate & Treat (Routine) +--------+--------+ + + + + | Status | Reason | Specialty | Diagnoses / | Referred By | Referred To | | | | | Procedures | Contact | Contact | +--------+--------+ + + + + | Closed | | Nurse | Diagnoses | Kyle, | Micheal, | | | | Practitioner | diarrhea | Wei | Negar | | | | / | Procedures | MD Maurisio | [facility] [address] | | | | Gastroenterol | OFFICE VISIT | [address] | | | | ogy | REGULAR | [place] | [address] | | | | | | [address] | [place], | | | | | | [place], | [place] [address] | | | | | | [place] | Phone: | | | | | | [address] | [phone] | | | | | | Phone: | Fax: | | | | | | [phone] | [phone] | | | | | | Fax: | | | | | | | [phone] | | +--------+--------+ + + + + Encounter Details +--------+---------+ + + + | Date | Type | Department | Care Team | Description | +--------+---------+ + + + | 08/14/ | Office | [facility] | [place], | Diarrhea (Primary | | 2012 | Visit | GASTROENTEROLOGY | [address] | Dx) | | | | [address] | [address] | | | | | [address] [place], [place] | [place], [place] | | | | | [address] | [address] | | | | | [phone] | | | +--------+---------+ + + + [...] + documented in this encounter Progress Notes Negar Burton ARNP - 08/14/2013 8:57 AM PSTFormatting of this note might be differe nt from the original. Maryann Askew is a 67 y.o. female referred by Wei Wright for evaluation and eleuterio tment of diarrhea. History of present illness: Diarrhea has been going on intermittently for over 3 years. She has about 3-8 BM per day. Most stools are liquid. 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 Notes a little cramping prior to BM. Goes away after BM. No changes in medications. Notes that diarrhea started prior to cholecystectomy performed in 2010. She does try cee styramine without relief. Allergies Allergen Reactions Codeine Sulfate Morphine Penicillins Past Medical History Diagnosis Date Polyp of gallbladder Cholecystitis Hypertension Osteoarthritis Depression Weight gain Diverticulosis Hyperplastic rectal polyp 2004, 2007 Bursitis of hip Colon polyp Hypothyroidism Hyperlipidemia Low back syndrome Obesity, unspecified Herpetic gingivostomatitis Unspecified hemorrhoids without mention of complication Past Surgical History Procedure Date Colonoscopy 08/2010 diverticulosis; int. hemorrhoids; polyp Cholecystectomy 11/2010 Hysterectomy 1996 juan c/bso Appendectomy 1964 Bunionectomy Carpal tunnel release Family History Problem Relation Age of Onset Cancer Mother lymphoma Alcohol abuse Father Breast cancer Sister History Social History Marital Status: Spouse Name: N/A Number of Children: N/A Years of Education: N/A Occupational History Not on file. Social History Main Topics Smoking status: Former Smoker Smokeless tobacco: Never Used Alcohol Use: Yes Drug Use: Not on file Sexually Active: Not on file Other Topics Concern Not on file Social History Narrative No narrative on file Review of systems: Constitutional:Denies any fevers, chills, or unintentional weight loss. Eyes:Denies using glaucoma eye drops. Denies dry, burning, painful eyes Respiratory:Denies shortness of breath, cough or wheezing. Gastrointestinal:Negative except as stated above. Skin: Denies rashes Neurological: Denies memory difficulties, numbness or tingling, muscle weakness, paralysis of arms or legs, epilepsy or seizure, or frequent bothersome and headaches ENT: Use of dentures.Denies hearing loss, hearing aids, hearing ringing or buzzing in ears, constantly runny nose, nasal obstruction, hayfever, or hoarseness. Cardiovascular:Denies chest pain, palpitations, or swelling to legs :Denies painful urination, urine incontinence, waking up on average more than once per ni ght to urinate, bloody urine, or impotence Musculoskeletal:Denies swollen joints, painful back, or painful joints. Psychiatric:Denies depression and anxiety Endocrine:Denies enlarged thyroid Heme/lymph:Denies anemia or enlarged lymph glands. Physical exam: General: well developed, well nourished, in no acute distress. Head: normocephalic and atraumatic Eyes: Sclera clear Mouth: MMM Lungs: Clear to auscultate bilaterally and throughout Heart: regular rate and rhythm Abdomen: Soft, non tender, non distended, bowel tones positive times 4 quadrants, negative Cornelio y's sign, negative rebound tenderness, no guarding, no hepatosplenomegaly palpated. Rectal: Will be done prior to procedure Msk: symmetrical with no deformity, with normal posture and gait, normal strength. Extremities: no clubbing, cyanosis, edema, or deformity noted Neurologic: no focal deficits, cranial nerves II-XII grossly intact Skin: intact without lesions or rashes. Psych: alert and cooperative; normal mood and affect; normal attention span and concentration. Laboratory 06/20/2013: CMP within normal limits with the exception of BUN 28 CBC within normal limits Cholangiogram 12/09/2010: Normal cholangiogram Colonoscopy 09/03/2010: 1. Minimal to moderate right and left-sided diverticulosis. 2. A 5 mm cecal polyp. 3. 4 mm polyp at 50 cm 4. A 3 mm polyp at 10 cm 5. Internal hemorrhoids. Pathology 09/03/2010: A. Cecal polyp -Tubulovillous adenomas B. terminal ileum biopsy -Terminal ileal mucosa with no histopathologic diagnosis C. Right colon biopsy: -Colonic mucosa with no histopathologic diagnosis D. Colon polyp at 50 cm, polypectomy -Serrated adenoma E. Transverse colon biopsy: -Consistent with melanosis coli F. Left colon biopsy: - Consistent with melanosis coli G. Rectal biopsy: Colonic mucosa with hyperplastic changes Assessment: 1. Diarrhea Ambulatory referral to Gastroenterology Plan: Patient to have colonoscopy for further evaluation. The procedural techniques, risks, indic ations, and alternatives were discussed. Among the risks, are perforation, bleeding, infect ion, allergic/adverse reactions to medications, and cardiovascular complications. Each of t hese could result in hospitalization, additional procedures (including surgery), or other li fe threatening complications. Patient verbalized understanding. Risk factors to colo-rectal cancer discussed with patient including smoking, obesity, excessive red meat ingestion, adv ancing age and first degree family relative with history of colo-rectal cancer discussed wit h patient. Patient to call with any questions or concerns prior to procedure. Lomitil 2 times per day. Loperamide once per day. Patient to try this to help with symptoms prior to colonoscopy. Will follow up with results. Patient is to call with any question or concerns. Any fevers, chills, chest pain, SOB or other serious symptoms patient is to call the office or go to ER . Cc: Wei Wright Reviewed most recent labs, imaging, and procedures. This note was dictated using voice recognition software. Please contact me if there are an y questions regarding its content. Electronically signed by ROCIO Guerra at 07/30 10:11 AM PSTdocumented in this encounter Miscellaneous Notes Miscellaneous - MATHIEU CASTANON - 08/14/2013 12:00 AM PST documented in this encounter Plan of Treatment + + +--------+ + + | Name | Type | Priori | Associated Diagnoses | Order Schedule | | | | ty | | | + + +--------+ + + | Ambulatory referral | Outpatient | Routin | Diarrhea | Expected: | | to Gastroenterology | Referral | e | | 08/20/2013, Expires: | | | | | | 08/14/2014 | + + +--------+ + + documented as of this encounter Visit Diagnoses + + | Diagnosis | + + | Diarrhea - Primary | + + documented in this encounter"
--- OUTSIDE RECORDS SUMMARY | ~2020-02-27 | XMS | Encounter Summary ---
Demographics + + + | Address | [address] | | | [place] [address] | + + + | Home Phone | | + + + | Preferred Language | Unknown | + + + | Marital Status | | + + + | Rastafarian Affiliation | Unknown | + + + | Race | Unknown | + + + | Ethnic Group | Unknown | + + + Author + + + | Author | [facility] | | | and [place] | + + + | Organization | [facility] | | | and [place] | + + + | Address | Unknown | + + + | Phone | Unavailable | + + + Support + + + + + | Name | Relationship | Address | Phone | + + + + + | Elysia Norris | ECON | [place] | | | | | [address] | | + + + + + | Art Askew | ECON | [address] | | | | | [place], [place] | | | | | [address] | | + + + + + Care Team Providers + +------+ + | Care Sizing Sprayer Name | Role | Phone | + +------+ + | Wei Wright MD | PCP | | + +------+ + Reason for Visit + +--------+ + | Reason | Onset | Comments | | | Date | | + +--------+ + | Appointment | 08/02/ | | | | 2012 | | + +--------+ + Encounter Details +--------+ + + + + | Date | Type | Department | Care Team | Description | +--------+ + + + + | 08/02/ | Telephone | [facility] | Lonnie Ramires MD | Appointment | | 2012 | | GASTROENTEROLOGY | [address], [facility] | | | | | [address] [facility] | [address] [place] [facility] [place] | | | | | [address] [place], [place] | [address] | | | | | [address] | | | | | | [phone] | | | +--------+ + + + [...] this encounter Miscellaneous Notes Telephone Encounter - Willem Delgado - 08/07/2013 1:37 PM PSTScheduled patient with Br ie on 08/14/13. Patient is going to call herself and request the colon report and pathology be sent by Juan's office. elephone Encounter - Antoinette Juárez RN - 08/02/2013 10:29 AM PSTCall and offer pt appt with next available GI provider. She had colonoscopy done by Dr Martinez in [place] an d still having diarrhea. Will need colon report and any path. elephone Encounter - Chloe Thornton - 08/02/20 10:09 AM [place] office called in asking about the status of the referral. Notes were sent back about a month ago, patient has not been contacted to schedule anything. Please rev iew and let us know if we need to call to schedule. documented in this encounter Plan of Treatment Not on filedocumented as of this encounter Visit Diagnoses Not on filedocumented in this encounter"
--- OUTSIDE RECORDS SUMMARY | ~2020-02-27 | XMS | Encounter Summary ---
Demographics + + + | Address | [address] | | | [place] [address] | + + + | Home Phone | | + + + | Preferred Language | Unknown | + + + | Marital Status | | + + + | Taoism Affiliation | Unknown | + + + | Race | Unknown | + + + | Ethnic Group | Unknown | + + + Author + + + | Author | [facility] | | | and [place] | + + + | Organization | [facility] | | | and [place] | + + + | Address | Unknown | + + + | Phone | Unavailable | + + + Support + + + + + | Name | Relationship | Address | Phone | + + + + + | Elysia Norris | ECON | [place] | | | | | [address] | | + + + + + | Art Askew | ECON | [address] | | | | | [place] | | | | | [address] | | + + + + + Care Team Providers + +------+ + | Care Air Conditioning Technician Name | Role | Phone | + +------+ + | Wei Wright MD | PCP | | + +------+ + Reason for Visit +---------+--------+ + | Reason | Onset | Comments | | | Date | | +---------+--------+ + | Results | 09/04/ | | | | 2013 | | +---------+--------+ + Encounter Details +--------+ + + + + | Date | Type | Department | Care Team | Description | +--------+ + + + + | 09/04/ | Telephone | [facility] | Lonnie Ramries MD | Results | | 2013 | | GASTROENTEROLOGY | [address] | | | | | [address] [facility] | [address] [place] | | | | | [address] [place], [place] | [address] | | | | | [address] | | | | | | [phone] | | | +--------+ + + + [...] Telephone Encounter - Antoinette Juárez RN - 09/04/2013 3:14 PM PSTNotified patient th at sigmoid biopsies were negative. Stool cultures were negative. She reports only one stoo l every other day if she takes lomotil BID and loperamide once a day. Is not taking the fib er tabs. She will at times have a "spell" where she has urgency and will have 3 loose stool s in a short amount of time and "can't control it". Offered a f/u appt but she feels if ok to stay on lomotil and loperamide will do ok. documented in this encounter Plan of Treatment Not on filedocumented as of this encounter Visit Diagnoses Not on filedocumented in this encounter
--- OUTSIDE RECORDS SUMMARY | ~2020-02-27 | XMS | Encounter Summary ---
Demographics + + + | Address | [address] | | | [place] [address] | + + + | Home Phone | | + + + | Preferred Language | Unknown | + + + | Marital Status | | + + + | Confucianism Affiliation | Unknown | + + + | Race | Unknown | + + + | Ethnic Group | Unknown | + + + Author + + + | Author | [facility] | | | and [place] | + + + | Organization | [facility] | | | and [place] | + + + | Address | Unknown | + + + | Phone | Unavailable | + + + Support + + + + + | Name | Relationship | Address | Phone | + + + + + | Elysia Norris | ECON | [place] | | | | | [address] | | + + + + + | Art Askew | ECON | [address] | | | | | [place], [place] | | | | | [address] | | + + + + + Care Team Providers + +------+ + | Care Forestry Engineer Name | Role | Phone | + +------+ + PCP | Unavailable | + +------+ + Encounter Details +--------+ + + + + | Date | Type | Department | Care Team | Description | +--------+ + + + + | 05/11/ | Abstract | [facility] | DATA MIGRATION [facility] | | | 2011 | | Conversion Location | SR | | | | | [address] | | | | | | [place], [place] | | | | | | [address] | | | | | | [phone] | | | +--------+ + + + + Social History + +-------+ +--------+------+ | Tobacco Use | Types | Packs/Day | Years | Date | | | | | Used | | + +-------+ +--------+------+ | Never Assessed | | | | | + +-------+ +--------+------+ + + + | Sex Assigned at | Date Recorded | | | | + + + | Not on file | | + + + documented as of this encounter Last Filed Vital Signs + + + + + | Vital Sign | Reading | Time Taken | Comments | + + + + + | Blood Pressure | 100/60 | 02/22/2011 12:00 AM | | | | | PDT | | + + + + + | Pulse | - | - | | + + + + + | Temperature | - | - | | + + + + + | Respiratory Rate | - | - | | + + + + + | Oxygen Saturation | - | - | | + + + + + | Inhaled Oxygen | - | - | | | Concentration | | | | + + + + + | Weight | 76.7 kg (169 lb) | 03/08/2012 12:00 AM | | | | | PDT | | + + + + + | Height | 152.4 cm (5') | 11/30/2010 12:00 AM | | | | | PDT | | + + + + + | Body Mass Index | 33.01 | 11/30/2010 12:00 AM | | | | | PDT | | + + + + + documented in this encounter Plan of Treatment Not on filedocumented as of this encounter Procedures + +--------+ + + + | Procedure Name | Priori | Date/Time | Associated Diagnosis | Comments | | | ty | | | | + +--------+ + + + | ENDOSCOPY, COLON, | Routin | 09/03/2010 | | Results for this | | DIAGNOSTIC | e | 12:00 AM | | procedure are in the | | | | PST | | results section. | + +--------+ + + + documented in this encounter Results ENDOSCOPY, COLON, DIAGNOSTIC (09/03/2010 12:00 AM PST) + + | Specimen | + + | | + + + + + | Narrative | Performed At | + + + | | | + + + documented in this encounter Visit Diagnoses Not on filedocumented in this encounter"
--- OUTSIDE RECORDS SUMMARY | ~2020-02-27 | XMS | Encounter Summary ---
Demographics + + + | Address | [address] | | | [place] [address] | + + + | Home Phone | | + + + | Preferred Language | Unknown | + + + | Marital Status | | + + + | Amish Affiliation | Unknown | + + + | Race | Unknown | + + + | Ethnic Group | Unknown | + + + Author + + + | Author | [facility] | | | and [place] | + + + | Organization | [facility] | | | and [place] | + + + | Address | Unknown | + + + | Phone | Unavailable | + + + Support + + + + + | Name | Relationship | Address | Phone | + + + + + | Elysia Norris | ECON | [place] | | | | | [address] | | + + + + + | Art Askew | ECON | [address] | | | | | [place], [place] | | | | | [address] | | + + + + + Care Team Providers + +------+ + | Care Dicer Operator Name | Role | Phone | + +------+ + PCP | Unavailable | + +------+ + Encounter Details +--------+ + + + + | Date | Type | Department | Care Team | Description | +--------+ + + + + | 04/06/ | Hospital | [facility] | Blaine Aggarwal, | | | 2011 | Encounter | [facility] | MD [address] [facility] | | | | | [address] | [place], [place] | | | | | [place], [place] | [address] | | | | | [address] | | | | | | [phone] | | | +--------+ + + + [...] encounter H&P Notes Blaine Aggarwal MD - 04/06/2012 11:26 AM PDTDATE: PREOPERATIVE HISTORY AND PHYSICAL DATE OF PROCEDURE: 04/06/2012 PATIENT IDENTIFICATION: Ms. Askew is a 66-year-old female with a chief complaint of bilatera l hand num bness. HISTORY OF PRESENT ILLNESS: The patient has had symptoms for at least 5 or 6 years. It has progressiv yoandy worsened. She has daily multiple episodes of her hands falling asleep. They generally wake up whe n she shakes them. She is dropping things and is having nocturnal valentín kening. PREVIOUS MEDICAL HISTORY: Significant for hypertension, hypercholesterolemia. CURRENT MEDICATIONS 1. Lovastatin 40 mg p.o. daily. 2. Losartan 50 mg p.o. daily. 3. Levothyroxine 75 mcg p.o. daily. 4. Triamterene 37.5 mg p.o. daily. 5. Hydrochlorothiazide 25 mg p.o. daily. 6. Citalopram 20 mg p.o. daily. 7. Acyclovir 400 mg p.o. daily. 8. Potassium chloride 10 mEq p.o. daily. ALLERGIES 1. PENICILLIN. 2. MORPHINE. 3. CODEINE. PREVIOUS SURGERIES 1. Hysterectomy in 1992. 2. Cholecystectomy in 2011. 3. Appendectomy in 1963. PRIMARY CARE PROVIDER: Hernan Wright MD FAMILY HISTORY: Father at age 71 of liver failure. Mother at age 58 of lymphoma. SOCIAL HISTORY: She is marred with 3 children. They are healthy. She is a moderate consumer of [employer]. She quit smoking 18 years ago. REVIEW OF SYSTEMS EYES: Negative. EARS, NOSE, THROAT: Negative. RESPIRATORY: Negative. CARDIOVASCULAR: Negative, except as above. GI: Negative. : Positive leakage, otherwise negative. MUSCULOSKELETAL: Negative, except as above. SKIN: Negative. PSYCHIATRIC: Negative. ENDOCRINE: Negative. CONSTITUTIONAL: Negative. PHYSICAL EXAMINATION VITAL SIGNS: Temperature 98, pulse 72, respirations 16, blood pressure 128/86. HEENT: Atraumatic. Oropharynx clear. HEART: Regular rate and rhythm. LUNGS: Clear. ABDOMEN: Soft, nontender. EXTREMITIES: Both hands have positive Phalen sign. She has intact thenar musculature. There is mild t riggering of her ring finger in the left hand. There is no triggering of the rig ht hand. IMPRESSION 1. BILATERAL CARPAL TUNNEL SYNDROME. 2. INTERMITTENT LEFT RING TRIGGER FINGER. DIAGNOSES 1. BILATERAL CARPAL TUNNEL SYNDROME. 2. INTERMITTENT LEFT RING TRIGGER FINGER. PLAN: Right carpal tunnel release. The goals of the surgery, the inherent risks, and reason able expec tations for recovery were all discussed. The patient understands and agrees with the proposed plan. DICTATED BY: Blaine Aggarwal MD Orthopedics JOB #: [id number] EXT JOB #:[id number] EDITED: 04/06/2012 08:01 <Electronically Signed by Blaine Aggarwal MD> 04/07/12 1659 documented in this encounter Miscellaneous Notes Op Note - Blaine Aggarwal MD - 04/06/2012 11:26 AM PDTDATE: 04/06/2012 PREOPERATIVE DIAGNOSIS Right hand carpal tunnel syndrome. POSTOPERATIVE DIAGNOSIS RIGHT HAND CARPAL TUNNEL SYNDROME. PROCEDURE PERFORMED: Right carpal tunnel release. INDICATION FOR SURGERY: Patient has had symptoms characteristic of carpal tunnel syndrome i n both weldon ds on a chronic basis, recalcitrant to all conservative measures. Therefore, the above procedure is i ndicated. PROCEDURE IN DETAIL: After informed consent was obtained, the patient was taken to the oper ating room and underwent purely local anesthetic with a combination of 0.5% Marcaine and 1% lidocaine plain. Af ter appropriate timeout, site localization and sterile prep and drape, an incision was made starting 1 cm distal to the transverse wrist crease on a line drawn f rom the radial border of the ring finger. Full-thickness dissection through the skin, subcu , palmar fascia followed by self-retaining retracto r. Hemostasis achieved with bipolar cau sally. The transverse carpal ligament was identified and sectio cristina in the midline. Median n erve was encountered and protected with a [place] as we continued the di ssection distally to the fat pad and proximally. Curved Villalobos scissors were used to complete the relea se wel l into the distal forearm fascia. Hemostasis achieved with bipolar cautery. The nerve looked in tact. The transverse carpal ligament was excessively thick. The wound was irrigated and closed with 4 -0 nylon interrupted mattress sutures. Sterile dressings were applied with a bulky compressive hand b andage, and she was stable to Postanesthesia Recovery. ESTIMATED BLOOD LOSS: 5 mL. DICTATED BY: Blaine Aggarwal MD Orthopedics JOB #: [id number] EXT JOB #:[id number] <Electronicall y Signed by Blaine Aggarwal MD> 04/07/12 9207 documented in this encounter Plan of Treatment Not on filedocumented as of this encounter Visit Diagnoses Not on filedocumented in this encounter"
--- OUTSIDE RECORDS SUMMARY | ~2020-02-27 | XMS | Encounter Summary ---
Demographics + + + | Address | [address] | | | [place] [address] | + + + | Home Phone | | + + + | Preferred Language | Unknown | + + + | Marital Status | | + + + | Latter Day Affiliation | Unknown | + + + | Race | Unknown | + + + | Ethnic Group | Unknown | + + + Author + + + | Author | [facility] | | | and [place] | + + + | Organization | [facility] | | | and [place] | + + + | Address | Unknown | + + + | Phone | Unavailable | + + + Support + + + + + | Name | Relationship | Address | Phone | + + + + + | Elysia Norris | ECON | [place] | | | | | [address] | | + + + + + | Art Askew | ECON | [address] | | | | | [place], [place] | | | | | [address] | | + + + + + Care Team Providers + +------+ + | Care Affiliate Marketing Specialist Name | Role | Phone | + +------+ + | Wei Wright MD | PCP | | + +------+ + Reason for Visit + +--------+ + | Reason | Onset | Comments | | | Date | | + +--------+ + | Abdominal Pain | 09/27/ | | | | 2013 | | + +--------+ + Encounter Details +--------+ + + + + | Date | Type | Department | Care Team | Description | +--------+ + + + + | 09/27/ | Telephone | [facility] | Lonnie Ramires MD | Abdominal Pain | | 2013 | | GASTROENTEROLOGY | [address], [place] | | | | | [address] [place] | [address] [place], [place] | | | | | [address] [place], [place] | [address] | | | | | [address] | | | | | | [phone] | | | +--------+ + + + [...] this encounter Miscellaneous Notes Telephone Encounter - Christa Martin RN - 09/27/2013 3:27 PM PSTCalled patient she states she has been doing well with taking lomotil twice daily, recently has had issues with urgenc y again advised that recommended trying bentyl every a.m. To see if that helps with the urgency patient agreed, will send in rx for month supply patient will try to see if that helps. documented in th is encounter Plan of Treatment Not on filedocumented as of this encounter Visit Diagnoses Not on filedocumented in this encounter"
--- OUTSIDE RECORDS SUMMARY | ~2020-02-27 | XMS | Encounter Summary ---
Demographics + + + | Address | [address] | | | [place] [address] | + + + | Home Phone | | + + + | Preferred Language | Unknown | + + + | Marital Status | | + + + | Jehovah'S Witness Affiliation | Unknown | + + + | Race | Unknown | + + + | Ethnic Group | Unknown | + + + Author + + + | Author | [facility] | | | and [place] | + + + | Organization | [facility] | | | and [place] | + + + | Address | Unknown | + + + | Phone | Unavailable | + + + Support + + + + + | Name | Relationship | Address | Phone | + + + + + | Elysia Norris | ECON | [place] | | | | | [address] | | + + + + + | Art Askew | ECON | [address] | | | | | [place] | | | | | [address] | | + + + + + Care Team Providers + +------+ + | Care Wine And Spirits Clerk Name | Role | Phone | + +------+ + | Wei Wright MD | PCP | | + +------+ + Reason for Visit +---------+ + | Reason | Comments | +---------+ + | Post Op | post op right trigger finger release dos: 01/18/2013 *suture | | | removal* | +---------+ + Encounter Details +--------+---------+ + + + | Date | Type | Department | Care Team | Description | +--------+---------+ + + + | 01/31/ | Office | [facility] | Blaine Aggarwal, | Postop check | | 2012 | Visit | ORTHOPEDIC SURGERY | [address] | (Primary Dx) | | | | [address] | [place] | | | | | [place] | [id number] | | | | | [address] | | | | | | [phone] | | | +--------+---------+ + + + [...] + + + + | Weight | 72.6 kg (160 lb) | 01/31/2013 8:51 AM | | | | | PDT | | + + + + + | Height | 152.4 cm (5') | 01/31/2013 8:51 AM | | | | | PDT | | + + + + + | Body Mass Index | 31.25 | 01/31/2013 8:51 AM | | | | | PDT | | + + + + + documented in this encounter Progress Notes Blaine Aggarwal MD - 01/31/2013 9:32 AM PDTPt returns s/p trigger finger release - doing well No pain or triggering Sutures removed Return prn documented in this encounter Plan of Treatment Not on filedocumented as of this encounter Visit Diagnoses + + | Diagnosis | + + | Postop check - Primary Follow-up examination, following unspecified surgery | + + documented in this encounter"
[2020-02-27] MEDS ORDERED: ELIQUIS5 MG PO (10:02)
--- NOTE | 2020-02-27 16:40 | EKG ---
[facility] [address] [place], [place] [address] Signed Normal sinus rhythm Low voltage QRS Borderline ECG No previous ECGs available Confirmed by JOSEPH CORONA DO ([id number]) on 02/27/2020 4:39:49 PM Electronically Signed By: JOSEPH CORONA DO 02/27/20 1640 PATIENT NAME: MARILEE RIVERA LINDA Electrocardiogram DATE OF : 43 PHYSICIAN: JOSEPH CORONA DO REPORT #: [id number] REPORT IS CONFIDENTIAL AND NOT TO BE RELEASED WITHOUT AUTHORIZATION
== END 2020-02-27 16:46 | disposition home or self-care (01) ==
LOC: ED 09:42
DX: I77.1 Stricture of artery (principal); I10 Essential (primary) hypertension; E78.5 Hyperlipidemia, unspecified; Z87.891 Personal history of nicotine dependence; Z88.0 Allergy status to penicillin; Z88.5 Allergy status to narcotic agent; Z79.899 Other long term (current) drug therapy; Z79.01 Long term (current) use of anticoagulants; Z79.82 Long term (current) use of aspirin
CPT/HCPCS: 80053; 85025; 85610; 85730; 93005; 93010; 93225; 93226; 93227; 99284-25; Q9967

== ENCOUNTER 2021-06-04 13:29 | Emergency (ER) | payer OTHER, MEDICARE ==
[~2021-06-04] VITALS: Ht 152.4 cm; Wt 75.3 kg
[~2021-06-04 13:29] MED LIST changes: +ELIQUIS5 MG PO
== END 2021-06-04 17:00 | disposition home or self-care (01) ==
LOC: ED 13:29
PROC: 0HQ1XZZ Repair Face Skin, External Approach (ICD-10-PCS; principal; 2021-06-04)
PROC: 2W3CX1Z Immobilization of Right Lower Arm using Splint (ICD-10-PCS; 2021-06-04)
DX: S52.511A Displaced fracture of right radial styloid process, initial encounter for closed fracture (principal); S01.111A Laceration without foreign body of right eyelid and periocular area, initial encounter; Z23 Encounter for immunization; W01.0XXA Fall on same level from slipping, tripping and stumbling without subsequent striking against object, initial encounter; Y93.01 Activity, walking, marching and hiking; I10 Essential (primary) hypertension; E78.5 Hyperlipidemia, unspecified; Z87.891 Personal history of nicotine dependence; Z88.0 Allergy status to penicillin; Z88.5 Allergy status to narcotic agent; Z79.899 Other long term (current) drug therapy; Z79.01 Long term (current) use of anticoagulants; Z79.82 Long term (current) use of aspirin
CPT/HCPCS: 12011; 29125; 70450; 73110; 90471; 90715; 99284-25

== ENCOUNTER 2022-10-11 13:13 | Emergency (ER) | payer MEDICARE ==
[~2022-10-11] VITALS: Ht 152.4 cm; Wt 68.0 kg
[2022-10-11] MEDS ORDERED: IRBESARTAN300 MG PO (13:58)
[2022-10-11] MEDS ORDERED: ATORVASTATIN CA80 MG PO (13:58)
[2022-10-11] MEDS ORDERED: METAMUCIL0.4 GM PO (13:59)
[2022-10-11] MEDS ORDERED: PLAVIX75 MG PO (15:01)
--- NOTE | 2022-10-12 07:13 | EKG ---
[facility] [address] [facility] [place], [place] [address] Signed Normal sinus rhythm Normal ECG When compared with ECG of 27-FEB-2020 12:14, No significant change was found Confirmed by RAYMUNDO PRICE MD ([id number]) on 10/12/2022 7:13:38 AM Electronically Signed By: RAYMUNDO PRICE MD 10/12/22712 PATIENT NAME: MARILEE RIVERA LINDA Electrocardiogram DATE OF : 43 PHYSICIAN: RAYMUNDO PRICE MD REPORT #: [id number] REPORT IS CONFIDENTIAL AND NOT TO BE RELEASED WITHOUT AUTHORIZATION
== END 2022-10-11 16:05 | disposition home or self-care (01) ==
LOC: ED 13:13
DX: H54.61 Unqualified visual loss, right eye, normal vision left eye (principal); H34.11 Central retinal artery occlusion, right eye; I10 Essential (primary) hypertension; E78.5 Hyperlipidemia, unspecified; Z87.891 Personal history of nicotine dependence; Z88.0 Allergy status to penicillin; Z88.5 Allergy status to narcotic agent; Z79.899 Other long term (current) drug therapy
CPT/HCPCS: 36415; 70450; 70496; 70498; 80053; 85025; 85651; 86140; 93005; 93010; 99284-25; A9270; Q9967

== ENCOUNTER 2022-10-30 10:05 | Emergency (ER) | payer MEDICARE ==
[~2022-10-30] VITALS: Ht 152.4 cm; Wt 70.1 kg
[~2022-10-30 10:05] MED LIST changes: +ATORVASTATIN CA80 MG PO; +IRBESARTAN300 MG PO; +METAMUCIL0.4 GM PO; +PLAVIX75 MG PO
--- OUTSIDE RECORDS SUMMARY | 2022-10-30 10:08 | XMS ---
PreManage Notification: MARILEE RIVERA Security Partnership Marketing Manager Events No recent Security Events currently on file CRITERIA MET - [facility] - 2 Visits in 30 Days CARE PROVIDERS There are no care providers on record at this time. Sharla has no Care Guidelines for this patient. Nick VISIT COUNT (12 MO.) [address] [facility] TOTAL 2 NOTE: Visits indicate total known visits. [place] [place] (12 MO[place] 10/30/2022 10:06 [facility] [place] TYPE: Emergency COMPLAINT: - NOSE BLEED 10/11/2022 13:13 [facility] TYPE: Emergency COMPLAINT: - POSS STROKE DIAGNOSES: - Other termination clerk (current) drug therapy - Allergy status to narcotic agent - Personal history of nicotine dependence - Central retinal artery occlusion, right eye - Essential (primary) hypertension - Hyperlipidemia, unspecified - Allergy status to penicillin - Unqualified visual loss, right eye, normal vision left eye INPATIENT VISIT TRACKING (12 MO.) 10/25/2022 05:33 [facility] [place] TYPE: Critical Care DIAGNOSES: - Occlusion and stenosis of right carotid artery [email or web address]
[2022-10-30] MEDS ORDERED: LO-DOSE ASPIRIN81 MG PO (10:17)
[2022-10-30] MEDS ORDERED: VITAMIN D350 MCG PO (10:18)
== END 2022-10-30 11:08 | disposition home or self-care (01) ==
LOC: ED 10:05
DX: R04.0 Epistaxis (principal); I10 Essential (primary) hypertension; E78.5 Hyperlipidemia, unspecified; Z87.891 Personal history of nicotine dependence; Z88.0 Allergy status to penicillin; Z88.5 Allergy status to narcotic agent; Z79.899 Other long term (current) drug therapy; Z79.82 Long term (current) use of aspirin
CPT/HCPCS: 30901; 99283-25

== ENCOUNTER 2023-03-07 01:19 | Emergency (ER) | payer MEDICARE ==
[~2023-03-07] VITALS: Ht 152.4 cm; Wt 68.0 kg
--- OUTSIDE RECORDS SUMMARY | ~2023-03-07 | XMS | Continuity of Care Document ---
Demographics + + + | Address | [address] | | | [place] [address] | + + + | Preferred Language | Unknown | + + + | Marital Status | | + + + | Mandaeism Affiliation | Unknown | + + + | Race | White | + + + | Ethnic Group | Not or | + + + Author + + + | Author | [facility] | + + + | Organization | [facility] | + + + | Address | [address] | | | [place] [address] | + + + | Phone | | + + + Care Team Providers + + + + | Care Medical Staff Director Name | Role | Phone | + + + + Unavailable | Unavailable | + + + + Unavailable | Unavailable | + + + + Unavailable | Unavailable | + + + + Unavailable | Unavailable | + + + + Unavailable | Unavailable | + + + + Allergies and Intolerances + + + + + | date | description | facility | type | + + + + + | (no date) | Mild | [facility] ([facility] | | + + + + + | (no date) | Codeine | [facility] (unknown[facility] | | + + + + + | (no date) | Morphine | [facility] (unknown[facility] | | + + + + + | (no date) | Codeine | [facility] (unknown[facility] | | + + + + + | (no date) | Hallucinations | [facility] (unknown[facility] | | + + + + + | (no date) | Morphine | [facility] (unknown[facility] | | + + + + + | (no date) | Penicillin | [facility] (unknown[facility] | | + + + + + | (no date) | Penicillin | [facility] (unknown) [facility] | [facility] | | + + + + + | (no date) | Morphine | [facility] (unknown) [facility] | | + + + + + | (no date) | Penicillin | [facility] ([facility] | | + + + + + | (no date) | Penicillin | [facility] ([facility] | | + + + + + | (no date) | Codeine | [facility] ([facility] | | + + + + + Encounters No information. Functional Status No information. Immunizations + + + + | date | description | facility | + + + + | 2021-06-04 00:00 | Tdap | [facility] | + + + + | 2021-06-04 00:00 | Tdap | [facility] | + + + + Medications + + + + | date | description | facility | + + + + | 2022-10-11 00:00 | APIXABAN | [facility] | + + + + | 2022-10-30 00:00 | APIXABAN | [facility] | + + + + | 2022-11-13 00:00 | APIXABAN | [facility] | + + + + | 2022-10-11 00:00 | Psyllium Husk | [facility] | + + + + | 2022-10-30 00:00 | Psyllium Husk | [facility] | + + + + | 2022-11-13 00:00 | Psyllium Husk | [facility] | + + + + | 2022-10-11 00:00 | ACYCLOVIR | [facility] | + + + + | 2022-10-30 00:00 | ACYCLOVIR | [facility] | + + + + | 2022-11-13 00:00 | ACYCLOVIR | [facility] | + + + + | 2022-10-11 00:00 | | [facility] | | | TRIAMTERENE/HYDROCHLOROTHIA | | | | ZID | | + + + + | 2022-10-30 00:00 | | [facility] | | | TRIAMTERENE/HYDROCHLOROTHIA | | | | ZID | | + + + + | 2022-11-13 00:00 | | [facility] | | | TRIAMTERENE/HYDROCHLOROTHIA | | | | ZID | | + + + + | 2022-10-11 00:00 | IRBESARTAN | [facility] | + + + + | 2022-11-13 00:00 | IRBESARTAN | [facility] | + + + + | 2022-10-11 00:00 | CLOPIDOGREL BISULFATE | [facility] | + + + + | 2022-10-11 00:00 | CLOPIDOGREL BISULFATE | [facility] | + + + + | 2022-10-11 00:00 | CALCIUM CARBONATE | [facility] | + + + + | 2022-10-30 00:00 | CALCIUM CARBONATE | [facility] | + + + + | 2022-11-13 00:00 | CALCIUM CARBONATE | [facility] | + + + + | 2022-10-11 00:00 | ATORVASTATIN CALCIUM | [facility] | + + + + | 2022-10-30 00:00 | ATORVASTATIN CALCIUM | [facility] | + + + + | 2022-11-13 00:00 | ATORVASTATIN CALCIUM | [facility] | + + + + | 2022-10-30 00:00 | ASPIRIN | [facility] | + + + + | 2022-11-13 00:00 | ASPIRIN | [facility] | + + + + | 2022-10-11 00:00 | CITALOPRAM HYDROBROMIDE | [facility] | + + + + | 2022-10-30 00:00 | CITALOPRAM HYDROBROMIDE | [facility] | + + + + | 2022-11-13 00:00 | CITALOPRAM HYDROBROMIDE | [facility] | + + + + | 2022-10-11 00:00 | HYDROCHLOROTHIAZIDE | [facility] | + + + + | 2022-10-11 00:00 | SIMVASTATIN | [facility] | + + + + | 2022-10-30 00:00 | SIMVASTATIN | [facility] | + + + + | 2022-11-13 00:00 | SIMVASTATIN | [facility] | + + + + | 2022-10-11 00:00 | ACETAMINOPHEN | [facility] | + + + + | 2022-10-30 00:00 | ACETAMINOPHEN | [facility] | + + + + | 2022-11-13 00:00 | ACETAMINOPHEN | [facility] | + + + + | 2022-10-30 00:00 | Cholecalciferol (Vitamin | [facility] | | | D3) | | + + + + | 2022-11-13 00:00 | Cholecalciferol (Vitamin | [facility] | | | D3) | | + + + + | 2022-10-11 00:00 | LEVOTHYROXINE SODIUM | [facility] | + + + + | 2022-10-30 00:00 | LEVOTHYROXINE SODIUM | [facility] | + + + + | 2022-11-13 00:00 | LEVOTHYROXINE SODIUM | [facility] | + + + + | 2022-10-11 00:00 | LOPERAMIDE HCL | [facility] | + + + + | 2022-10-30 00:00 | LOPERAMIDE HCL | [facility] | + + + + | 2022-11-13 00:00 | LOPERAMIDE HCL | [facility] | + + + + | 2022-11-13 00:00 | Loperamide HCl | [facility] | + + + + | 2022-10-11 00:00 | LOSARTAN POTASSIUM | [facility] | + + + + Problems + + + + | date | description | facility | + + + + | 2019-11-28 00:00 | 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 | | + + + + | 2019-11-28 00:00 | 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 | | + + + + | 2019-11-28 20:30:30 | 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 | [facility] | + + + + | 2021-06-04 00:00 | Facial laceration | [facility] | + + + + | 2021-06-04 00:00 | Facial laceration | [facility] | + + + + | 2021-06-04 00:00 | Injury of head | [facility] | + + + + | 2021-06-04 00:00 | Injury of head | [facility] | + + + + | 2021-06-04 00:00 | Fracture of styloid | [facility] | | | process of radius | | + + + + | 2021-06-04 00:00 | Fracture of styloid | [facility] | | | process of radius | | + + + + | 2022-10-11 00:00 | 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 | | + + + + | 2022-10-11 00:00 | 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 | | + + + + | 2022-10-11 00:00 | Vision loss of right eye | [facility] | + + + + | 2022-10-11 00:00 | Vision loss of right eye | [facility] | + + + + | 2022-10-11 13:13 | HYPERLIPIDEMIA, | [facility] | | | UNSPECIFIED | | + + + + | 2022-10-11 13:13 | 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, RIGHT EYE | | + + + + | 2022-10-11 13:13 | UNQUALIFIED VISUAL LOSS, | [facility] | | | RIGHT EYE, NORMAL VISION | | | | LEFT EYE | | + + + + | 2022-10-11 13:13 | Essential (primary) | [facility] | | | hypertension | | + + + + | 2022-10-11 13:13 | 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) | [facility] | | | DRUG THERAPY | | + + + + | 2022-10-11 13:13 | 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 | | + + + + | 2022-10-11 13:13 | ALLERGY STATUS TO | [facility] | | | PENICILLIN | | + + + + | 2022-10-11 13:13 | ALLERGY STATUS TO NARCOTIC | [facility] | | | AGENT STATUS | | + + + + | 2022-10-30 00:00 | Anterior epistaxis | [facility] | + + + + | 2022-10-30 00:00 | Anterior epistaxis | [facility] | + + + + | 2022-11-11 00:00 | Anemia | [facility] | + + + + | 2022-11-11 00:00 | Gastrointestinal | [facility] | | | hemorrhage | | + + + + Procedures + + + + | date | description | facility | + + + + | 2022-11-12 00:00 | Esophagogastroduodenoscopy | [facility] | | | (EGD) | | + + + + | 2022-11-13 00:00 | Colonoscopy | [facility] | + + + + | 2022-11-13 00:00 | Colonoscopy | [facility] | + + + + | 2022-11-12 00:00 | Esophagogastroduodenoscopy | [facility] | | | (EGD) | | + + + + Results/Labs +--------+--------+ + +---------+--------+ + | test | date | author | facility | value | unit | | | | | | | | | interpreta | | | | | | | | tion | +--------+--------+ + +---------+--------+ + + + | Result panel 1 | + + + + + + +---------+ + + | (unknown) | (no date) | (unknown) | [facility] | (no | (units | (unknown) | | [facility] | | | | + + + + +---------+ + + + + | Result panel 2 | + + + + + + +---------+ + + | (unknown) | (no date) | (unknown) | [facility] | (no | (units | (unknown) | | | [facility] value) | [facility]) | [facility] | | | | + + + + +---------+ + + + + | Result panel 3 | + + + + + + +---------+ + + | (unknown) | (no date) | (unknown) | [facility] | (no | (units | (unknown) | | | [facility] value) | [facility]) | [facility] | | | | + + + + +---------+ + + + + | Result panel 4 | + + + + + + +---------+ + + | (unknown) | (no date) | (unknown) | [facility] | (no | (units | (unknown) | | | [facility] value) | [facility]) | [facility] | | | | + + + + +---------+ + + + + | Result panel 5 | + + + + + + +---------+ + + | (unknown) | (no date) | (unknown) | [facility] | (no | (units | (unknown) | | | | [facility] | value) | [facility]) | [facility] | | | | + + + + +---------+ + + + + | Result panel 6 | + + + + + + +---------+ + + | (unknown) | (no date) | (unknown) | [facility] | (no | (units | (unknown) | | | [facility] | value) | unknown) | [facility] | | | | + + + + +---------+ + + + + | Result panel 7 | + + + + + + +---------+ + + | (unknown) | (no date) | (unknown) | [facility] | (no | (units | (unknown) | | | [facility] value) | [facility]) | [facility] | | | | + + + + +---------+ + + + + | Result panel 8 | + + + + + + +---------+ + + | (unknown) | (no date) | (unknown) | [facility] | (no | (units | (unknown) | | | [facility]) | [facility]) | [facility] | | | | + + + + +---------+ + + + + | Result panel 9 | + + + + + + +---------+ + + | (unknown) | (no date) | (unknown) | [facility] | (no | (units | (unknown) | | | [facility] value) | [facility]) | [facility] | | | | + + + + +---------+ + + + + | Result panel 10 | + + + + + + +---------+ + + | (unknown) | (no date) | (unknown) | [facility] | (no | (units | (unknown) | | | [facility]) | [facility]) | [facility] | | | | + + + + +---------+ + + + + | Result panel 11 | + + + + + + +---------+ + + | (unknown) | (no date) | (unknown) | [facility] | (no | (units | (unknown) | | | [facility] value) | [facility]) | [facility] | | | | + + + + +---------+ + + + + | Result panel 12 | + + + + + + +---------+ + + | (unknown) | (no date) | (unknown) | [facility] | (no | (units | (unknown) | | | | [facility] value) | [facility]) | [facility] | | | | + + + + +---------+ + + + + | Result panel 13 | + + + + + + +---------+ + + | (unknown) | (no date) | (unknown) | [facility] | (no | (units | (unknown) | | | | [facility] value) | [facility]) | [facility] | | | | + + + + +---------+ + + + + | Result panel 14 | + + + + + + +---------+ + + | (unknown) | (no date) | (unknown) | [facility] | (no | (units | (unknown) | | | | [facility] value) | [facility]) | [facility] | | | | + + + + +---------+ + + + + | Result panel 15 | + + + + + + +---------+ + + | (unknown) | (no date) | (unknown) | [facility] | (no | (units | (unknown) | | | | [facility] | value) | [facility]) | [facility] | [facility] | | | | + + + + +---------+ + + + + | Result panel 16 | + + + + + + +---------+ + + | (unknown) | (no date) | (unknown) | [facility] | (no | (units | (unknown) | | | | [facility] value) | [facility]) | [facility] | | | | + + + + +---------+ + + + + | Result panel 17 | + + + + + + +---------+ + + | (unknown) | (no date) | (unknown) | [facility] | (no | (units | (unknown) | | | | [facility] value) | [facility]) | [facility] | | | | + + + + +---------+ + + + + | Result panel 18 | + + + + + + +---------+ + + | (unknown) | (no date) | (unknown) | [facility] | (no | (units | (unknown) | | | [facility] value) | [facility]) | [facility] | | | | + + + + +---------+ + + + + | Result panel 19 | + + + + + + +---------+ + + | (unknown) | (no date) | (unknown) | [facility] | (no | (units | (unknown) | | | | [facility] value) | [facility]) | [facility] | | | | + + + + +---------+ + + + + | Result panel 20 | + + + + + + +---------+ + + | (unknown) | (no date) | (unknown) | [facility] | (no | (units | (unknown) | | | | [facility] value) | [facility]) | [facility] | [facility] | | | | + + + + +---------+ + + + + | Result panel 21 | + + + + + + +---------+ + + | (unknown) | (no date) | (unknown) | [facility] | (no | (units | (unknown) | | | [facility] | value) | [facility]) | [facility] | | | | + + + + +---------+ + + + + | Result panel 22 | + + + + + + +---------+ + + | (unknown) | (no date) | (unknown) | [facility] | (no | (units | (unknown) | | | | [facility] value) | [facility]) | [facility] | [facility] | | | | + + + + +---------+ + + + + | Result panel 23 | + + + + + + +---------+ + + | (unknown) | (no date) | (unknown) | [facility] | (no | (units | (unknown) | | | | [facility] | value) | [facility]) | [facility] | [facility] | | | | + + + + +---------+ + + + + | Result panel 24 | + + + + + + +---------+ + + | (unknown) | (no date) | (unknown) | [facility] | (no | (units | (unknown) | | | | [facility] value) | [facility]) | | | [facility] | | | | + + + + +---------+ + + + + | Result panel 25 | + + + + + + +---------+ + + | (unknown) | (no date) | (unknown) | [facility] | (no | (units | (unknown) | | | | [facility] value) | [facility]) | | | [facility] | | | | + + + + +---------+ + + + + | Result panel 26 | + + + + + + +---------+ + + | (unknown) | (no date) | (unknown) | [facility] | (no | (units | (unknown) | | | | [facility] value) | [facility]) | [facility] | [facility] | | | | + + + + +---------+ + + + + | Result panel 27 | + + + + + + +---------+ + + | (unknown) | (no date) | (unknown) | [facility] | (no | (units | (unknown) | | | | [facility] value) | [facility]) | [facility] | [facility] | | | | + + + + +---------+ + + + + | Result panel 28 | + + + + + + +---------+ + + | (unknown) | (no date) | (unknown) | [facility] | (no | (units | (unknown) | | | | [facility] value) | [facility]) | | | [facility] | | | | + + + + +---------+ + + + + | Result panel 29 | + + + + + + +---------+ + + | (unknown) | (no date) | (unknown) | [facility] | (no | (units | (unknown) | | | [facility] value) | [facility]) | [facility] | [facility] | | | | + + + + +---------+ + + + + | Result panel 30 | + + + + + + +---------+ + + | (unknown) | (no date) | (unknown) | [facility] | (no | (units | (unknown) | | | [facility] | [facility]) | | | [facility] | | | | + + + + +---------+ + + + + | Result panel 31 | + + + + + + +---------+ + + | (unknown) | (no date) | (unknown) | [facility] | (no | (units | (unknown) | | | [facility] | [facility]) | | | [facility] | | | | + + + + +---------+ + + + + | Result panel 32 | + + + + + + +---------+ + + | (unknown) | (no date) | (unknown) | [facility] | (no | (units | (unknown) | | | [facility] value) | [facility]) | [facility] | [facility] | | | | + + + + +---------+ + + + + | Result panel 33 | + + + + + + +---------+ + + | (unknown) | (no date) | (unknown) | [facility] | (no | (units | (unknown) | | | | [facility] value) | [facility]) | [facility] | [facility] | | | | + + + + +---------+ + + + + | Result panel 34 | + + + + + + +---------+ + + | (unknown) | (no date) | (unknown) | [facility] | (no | (units | (unknown) | | | [facility] value) | [facility]) | [facility] | [facility] | | | | + + + + +---------+ + + + + | Result panel 35 | + + + + + + +---------+ + + | (unknown) | (no date) | (unknown) | [facility] | (no | (units | (unknown) | | | | [facility] value) | [facility]) | | | [facility] | | | | + + + + +---------+ + + + + | Result panel 36 | + + + + + + +---------+ + + | (unknown) | (no date) | (unknown) | [facility] | (no | (units | (unknown) | | | | [facility] | value) | [facility]) | | | [facility] | | | | + + + + +---------+ + + + + | Result panel 37 | + + + + + + +---------+ + + | (unknown) | (no date) | (unknown) | [facility] | (no | (units | (unknown) | | | [facility] value) | [facility]) | [facility] | [facility] | | | | + + + + +---------+ + + + + | Result panel 38 | + + + + + + +---------+ + + | (unknown) | (no date) | (unknown) | [facility] | (no | (units | (unknown) | | | | [facility] value) | [facility]) | | | [facility] | | | | + + + + +---------+ + + + + | Result panel 39 | + + + + + + +---------+ + + | (unknown) | (no date) | (unknown) | [facility] | (no | (units | (unknown) | | | | [facility] | value) | [facility]) | [facility] | [facility] | | | | + + + + +---------+ + + + + | Result panel 40 | + + + + + + +---------+ + + | (unknown) | (no date) | (unknown) | [facility] | (no | (units | (unknown) | | | | [facility] value) | [facility]) | [facility] | [facility] | | | | + + + + +---------+ + + + + | Result panel 41 | + + + + + + +---------+ + + | (unknown) | (no date) | (unknown) | [facility] | (no | (units | (unknown) | | | | [facility] value) | [facility]) | [facility] | [facility] | | | | + + + + +---------+ + + + + | Result panel 42 | + + + + + + +---------+ + + | (unknown) | (no date) | (unknown) | [facility] | (no | (units | (unknown) | | | | [facility] | value) | unknown) | [facility] | [facility] | | | | + + + + +---------+ + + + + | Result panel 43 | + + + + + + +---------+ + + | (unknown) | (no date) | (unknown) | [facility] | (no | (units | (unknown) | | | | [facility] | value) | unknown) | | | [facility] | | | | + + + + +---------+ + + + + | Result panel 44 | + + + + + + +---------+ + + | (unknown) | (no date) | (unknown) | [facility] | (no | (units | (unknown) | | | | [facility] value) | [facility]) | [facility] | [facility] | | | | + + + + +---------+ + + + + | Result panel 45 | + + + + + + +---------+ + + | (unknown) | (no date) | (unknown) | [facility] | (no | (units | (unknown) | | | | [facility] value) | unknown) | [facility] | [facility] | | | | + + + + +---------+ + + + + | Result panel 46 | + + + + + + +---------+ + + | (unknown) | (no date) | (unknown) | [facility] | (no | (units | (unknown) | | | | [facility] | value) | [facility]) | | | [facility] | | | | + + + + +---------+ + + + + | Result panel 47 | + + + + + + +---------+ + + | (unknown) | (no date) | (unknown) | [facility] | (no | (units | (unknown) | | | | [facility] value) | [facility]) | [facility] | [facility] | | | | + + + + +---------+ + + + + | Result panel 48 | + + + + + + +---------+ + + | (unknown) | (no date) | (unknown) | [facility] | (no | (units | (unknown) | | | | [facility] | value) | unknown) | | | [facility] | | | | + + + + +---------+ + + + + | Result panel 49 | + + + + + + +---------+ + + | (unknown) | (no date) | (unknown) | [facility] | (no | (units | (unknown) | | | | [facility] value) | [facility]) | | | [facility] | | | | + + + + +---------+ + + + + | Result panel 50 | + + + + + + +---------+ + + | (unknown) | (no date) | (unknown) | [facility] | (no | (units | (unknown) | | | | [facility] | value) | unknown) | | | [facility] | | | | + + + + +---------+ + + + + | Result panel 51 | + + + + + + +---------+ + + | (unknown) | (no date) | (unknown) | [facility] | (no | (units | (unknown) | | | | [facility] value) | unknown) | [facility] | [facility] | | | | + + + + +---------+ + + + + | Result panel 52 | + + + + + + +---------+ + + | (unknown) | (no date) | (unknown) | [facility] | (no | (units | (unknown) | | | | [facility] | value) | unknown) | | | [facility] | | | | + + + + +---------+ + + + + | Result panel 53 | + + + + + + +---------+ + + | (unknown) | (no date) | (unknown) | [facility] | (no | (units | (unknown) | | | | [facility] value) | [facility]) | [facility] | [facility] | | | | + + + + +---------+ + + + + | Result panel 54 | + + + + + + +---------+ + + | (unknown) | (no date) | (unknown) | [facility] | (no | (units | (unknown) | | | | [facility] value) | [facility]) | [facility] | [facility] | | | | + + + + +---------+ + + + + | Result panel 55 | + + + + + + +---------+ + + | (unknown) | (no date) | (unknown) | [facility] | (no | (units | (unknown) | | | | [facility]) | [facility]) | [facility] | | | | + + + + +---------+ + + + + | Result panel 56 | + + + + + + +---------+ + + | (unknown) | (no date) | (unknown) | [facility] | (no | (units | (unknown) | | | | [facility] value) | [facility]) | [facility] | [facility] | | | | + + + + +---------+ + + + + | Result panel 57 | + + + + + + +---------+ + + | (unknown) | (no date) | (unknown) | [facility] | (no | (units | (unknown) | | | | [facility]) | [facility]) | [facility] | [facility] | | | | + + + + +---------+ + + + + | Result panel 58 | + + + + + + +---------+ + + | (unknown) | (no date) | (unknown) | [facility] | (no | (units | (unknown) | | | [facility]) | [facility]) | [facility] | [facility] | | | | + + + + +---------+ + + + + | Result panel 59 | + + + + + + +---------+ + + | (unknown) | (no date) | (unknown) | [facility] | (no | (units | (unknown) | | | [facility]) | [facility]) | [facility] | [facility] | | | | + + + + +---------+ + + + + | Result panel 60 | + + + + + + +---------+ + + | (unknown) | (no date) | (unknown) | [facility] | (no | (units | (unknown) | | | [facility] | [facility]) | [facility] | [facility] | | | | + + + + +---------+ + + + + | Result panel 61 | + + + + + + +---------+ + + | (unknown) | (no date) | (unknown) | [facility] | (no | (units | (unknown) | | | [facility]) | [facility]) | [facility] | [facility] | | | | + + + + +---------+ + + + + | Result panel 62 | + + + + + + +---------+ + + | (unknown) | (no date) | (unknown) | [facility] | (no | (units | (unknown) | | | [facility]) | [facility]) | [facility] | [facility] | | | | + + + + +---------+ + + + + | Result panel 63 | + + + + + + +---------+ + + | (unknown) | (no date) | (unknown) | [facility] | (no | (units | (unknown) | | | [facility] value) | [facility]) | [facility] | [facility] | | | | + + + + +---------+ + + + + | Result panel 64 | + + + + + + +---------+ + + | (unknown) | (no date) | (unknown) | [facility] | (no | (units | (unknown) | | | | [facility] value) | [facility]) | [facility] | [facility] | | | | + + + + +---------+ + + + + | Result panel 65 | + + + + + + +---------+ + + | (unknown) | (no date) | (unknown) | [facility] | (no | (units | (unknown) | | | | | [facility] | value) | unknown) | | | | | | [facility] | | | | + + + + +---------+ + + + + | Result panel 66 | + + + + + + +---------+ + + | (unknown) | (no date) | (unknown) | [facility] | (no | (units | (unknown) | | | | | [facility] | value) | unknown) | | | | | | [facility] | | | | + + + + +---------+ + + + + | Result panel 67 | + + + + + + +---------+ + + | (unknown) | (no date) | (unknown) | [facility] | (no | (units | (unknown) | | | | | [facility] | value) | unknown) | | | | | | [facility] | | | | + + + + +---------+ + + + + | Result panel 68 | + + + + + + +---------+ + + | (unknown) | (no date) | (unknown) | [facility] | (no | (units | (unknown) | | | | | [facility] | value) | unknown) | | | | | | [facility] | | | | + + + + +---------+ + + + + | Result panel 69 | + + + + + + +---------+ + + | (unknown) | (no date) | (unknown) | [facility] | (no | (units | (unknown) | | | | | [facility] | value) | unknown) | | | | | | [facility] | | | | + + + + +---------+ + + + + | Result panel 70 | + + + + + + +---------+ + + | (unknown) | (no date) | (unknown) | [facility] | (no | (units | (unknown) | | | | | [facility] | value) | unknown) | | | | | | [facility] | | | | + + + + +---------+ + + + + | Result panel 71 | + + + + + + +---------+ + + | (unknown) | (no date) | (unknown) | [facility] | (no | (units | (unknown) | | | | [facility] | value) | unknown) | | | | | [facility] | | | | + + + + +---------+ + + + + | Result panel 72 | + + + + + + +---------+ + + | (unknown) | (no date) | (unknown) | [facility] | (no | (units | (unknown) | | | | | [facility] | value) | unknown) | | | | | [facility] | | | | + + + + +---------+ + + + + | Result panel 73 | + + + + + + +---------+ + + | (unknown) | (no date) | (unknown) | [facility] | (no | (units | (unknown) | | | | [facility] | value) | unknown) | | | | [facility] | | | | + + + + +---------+ + + + + | Result panel 74 | + + + + + + +---------+ + + | (unknown) | (no date) | (unknown) | [facility] | (no | (units | (unknown) | | | | [facility] | value) | unknown) | | | | | [facility] | | | | + + + + +---------+ + + + + | Result panel 75 | + + + + + + +---------+ + + | (unknown) | (no date) | (unknown) | [facility] | (no | (units | (unknown) | | | | | [facility] | value) | unknown) | | | | [facility] | | | | + + + + +---------+ + + + + | Result panel 76 | + + + + + + +---------+ + + | (unknown) | (no date) | (unknown) | [facility] | (no | (units | (unknown) | | | | | [facility] | value) | unknown) | | | | [facility] | | | | + + + + +---------+ + + + + | Result panel 77 | + + + + + + +---------+ + + | (unknown) | (no date) | (unknown) | [facility] | (no | (units | (unknown) | | | | | [facility] | value) | unknown) | | | | [facility] | | | | + + + + +---------+ + + + + | Result panel 78 | + + + + + + +---------+ + + | (unknown) | (no date) | (unknown) | [facility] | (no | (units | (unknown) | | | | | [facility] | value) | unknown) | | | | [facility] | | | | + + + + +---------+ + + + + | Result panel 79 | + + + + + + +---------+ + + | (unknown) | (no date) | (unknown) | [facility] | (no | (units | (unknown) | | | | | [facility] | value) | unknown) | | | | [facility] | | | | + + + + +---------+ + + + + | Result panel 80 | + + + + + + +---------+ + + | (unknown) | (no date) | (unknown) | [facility] | (no | (units | (unknown) | | | | | [facility] | value) | unknown) | | | | [facility] | | | | + + + + +---------+ + + + + | Result panel 81 | + + + + + + +---------+ + + | (unknown) | (no date) | (unknown) | [facility] | (no | (units | (unknown) | | | | | [facility] | value) | unknown) | | | | [facility] | | | | + + + + +---------+ + + + + | Result panel 82 | + + + + + + +---------+ + + | (unknown) | (no date) | (unknown) | [facility] | (no | (units | (unknown) | | | | | [facility] | value) | unknown) | | | | [facility] | | | | + + + + +---------+ + + + + | Result panel 83 | + + + + + + +---------+ + + | (unknown) | (no date) | (unknown) | [facility] | (no | (units | (unknown) | | | | | [facility] | value) | unknown) | | [facility] | [facility] | | | | + + + + +---------+ + + + + | Result panel 84 | + + + + + + +---------+ + + | (unknown) | (no date) | (unknown) | [facility] | (no | (units | (unknown) | | | | | [facility] | value) | unknown) | | | | [facility] | | | | + + + + +---------+ + + + + | Result panel 85 | + + + + + + +---------+ + + | (unknown) | (no date) | (unknown) | [facility] | (no | (units | (unknown) | | | | | [facility] | value) | unknown) | | | | [facility] | | | | + + + + +---------+ + + + + | Result panel 86 | + + + + + + +---------+ + + | (unknown) | (no date) | (unknown) | [facility] | (no | (units | (unknown) | | | | | [facility] | value) | unknown) | | | | [facility] | | | | + + + + +---------+ + + + + | Result panel 87 | + + + + + + +---------+ + + | (unknown) | (no date) | (unknown) | [facility] | (no | (units | (unknown) | | | | | [facility] | value) | unknown) | | [facility] | | | | + + + + +---------+ + + + + | Result panel 88 | + + + + + + +---------+ + + | (unknown) | (no date) | (unknown) | [facility] | (no | (units | (unknown) | | | | | [facility] | value) | unknown) | | [facility] | | | | + + + + +---------+ + + + + | Result panel 89 | + + + + + + +---------+ + + | (unknown) | (no date) | (unknown) | [facility] | (no | (units | (unknown) | | | | | [facility] | value) | unknown) | | | [facility] | | | | + + + + +---------+ + + + + | Result panel 90 | + + + + + + +---------+ + + | (unknown) | (no date) | (unknown) | [facility] | (no | (units | (unknown) | | | | | [facility] | value) | unknown) | | | [facility] | | | | + + + + +---------+ + + + + | Result panel 91 | + + + + + + +---------+ + + | (unknown) | (no date) | (unknown) | [facility] | (no | (units | (unknown) | | | | | [facility] | value) | unknown) | | | | [facility] | | | | + + + + +---------+ + + + + | Result panel 92 | + + + + + + +---------+ + + | (unknown) | (no date) | (unknown) | [facility] | (no | (units | (unknown) | | | | | [facility] | value) | [facility]) | | | [facility] | | | | + + + + +---------+ + + + + | Result panel 93 | + + + + + + +---------+ + + | (unknown) | (no date) | (unknown) | (unknown) | >60 | | 10040-7 | | | | | | | ml/min/1.7 | | | | | | | | 3 m2 | | + + + + +---------+ + + | (unknown) | (no date) | (unknown) | (unknown) | >60 | | (unknown) | | | | | | | ml/min/1.7 | | | | | | | | 3 m2 | | + + + + +---------+ + + | (unknown) | (no date) | (unknown) | (unknown) | 0.79 | mg/dl | (unknown) | | | | | | | | | + + + + +---------+ + + | (unknown) | (no date) | (unknown) | (unknown) | 0.79 | mg/dl | 67347-7 | | | | | | | | | + + + + +---------+ + + | (unknown) | (no date) | (unknown) | (unknown) | 0.9 | (units | 6301-6 | | | | | | | unknown) | | + + + + +---------+ + + | (unknown) | (no date) | (unknown) | (unknown) | 0.9 | (units | (unknown) | | | | | | | unknown) | | + + + + +---------+ + + | (unknown) | (no date) | (unknown) | (unknown) | 10.8 | fl | 79328-4 | | | | | | | | | + + + + +---------+ + + | (unknown) | (no date) | (unknown) | (unknown) | 10.8 | fl | (unknown) | | | | | | | | | + + + + +---------+ + + | (unknown) | (no date) | (unknown) | (unknown) | 102 | mg/dl | 2345-7 | | | | | | | | | + + + + +---------+ + + | (unknown) | (no date) | (unknown) | (unknown) | 102 | mg/dl | (unknown) | | | | | | | | | + + + + +---------+ + + | (unknown) | (no date) | (unknown) | (unknown) | 102.2 | fl | (unknown) | | | | | | | | | + + + + +---------+ + + | (unknown) | (no date) | (unknown) | (unknown) | 102.2 | fl | 787-2 | | | | | | | | | + + + + +---------+ + + | (unknown) | (no date) | (unknown) | (unknown) | 107 | mmol/l | (unknown) | | | | | | | | | + + + + +---------+ + + | (unknown) | (no date) | (unknown) | (unknown) | 107 | mmol/l | 2075-0 | | | | | | | | | + + + + +---------+ + + | (unknown) | (no date) | (unknown) | (unknown) | 11.4 | g/dl | (unknown) | | | | | | | | | + + + + +---------+ + + | (unknown) | (no date) | (unknown) | (unknown) | 11.4 | g/dl | 718-7 | | | | | | | | | + + + + +---------+ + + | (unknown) | (no date) | (unknown) | (unknown) | 12.6 | sec | (unknown) | | | | | | | | | + + + + +---------+ + + | (unknown) | (no date) | (unknown) | (unknown) | 12.6 | sec | 5902-2 | | | | | | | | | + + + + +---------+ + + | (unknown) | (no date) | (unknown) | (unknown) | 13.4 | % | (unknown) | | | | | | | | | + + + + +---------+ + + | (unknown) | (no date) | (unknown) | (unknown) | 13.4 | % | 788-0 | | | | | | | | | + + + + +---------+ + + | (unknown) | (no date) | (unknown) | (unknown) | 139 | mmol/l | (unknown) | | | | | | | | | + + + + +---------+ + + | (unknown) | (no date) | (unknown) | (unknown) | 139 | mmol/l | 2951-2 | | | | | | | | | + + + + +---------+ + + | (unknown) | (no date) | (unknown) | (unknown) | 16 | mg/dl | (unknown) | | | | | | | | | + + + + +---------+ + + | (unknown) | (no date) | (unknown) | (unknown) | 16 | mg/dl | 3094-0 | | | | | | | | | + + + + +---------+ + + | (unknown) | (no date) | (unknown) | (unknown) | 20.3 | (units | (unknown) | | | | | | | unknown) | | + + + + +---------+ + + | (unknown) | (no date) | (unknown) | (unknown) | 20.3 | (units | 3097-3 | | | | | | | unknown) | | + + + + +---------+ + + | (unknown) | (no date) | (unknown) | (unknown) | 203 | 10s9/l | 777-3 | | | | | | | | | + + + + +---------+ + + | (unknown) | (no date) | (unknown) | (unknown) | 203 | 10s9/l | (unknown) | | | | | | | | | + + + + +---------+ + + | (unknown) | (no date) | (unknown) | (unknown) | 26 | mmol/l | (unknown) | | | | | | | | | + + + + +---------+ + + | (unknown) | (no date) | (unknown) | (unknown) | 26 | mmol/l | 2028-9 | | | | | | | | | + + + + +---------+ + + | (unknown) | (no date) | (unknown) | (unknown) | 3.68 | 10s12/l | 789-8 | | | | | | | | | + + + + +---------+ + + | (unknown) | (no date) | (unknown) | (unknown) | 3.68 | 10s12/l | (unknown) | | | | | | | | | + + + + +---------+ + + | (unknown) | (no date) | (unknown) | (unknown) | 30.3 | g/dl | (unknown) | | | | | | | | | + + + + +---------+ + + | (unknown) | (no date) | (unknown) | (unknown) | 30.3 | g/dl | 786-4 | | | | | | | | | + + + + +---------+ + + | (unknown) | (no date) | (unknown) | (unknown) | 31.0 | pg | (unknown) | | | | | | | | | + + + + +---------+ + + | (unknown) | (no date) | (unknown) | (unknown) | 31.0 | pg | 785-6 | | | | | | | | | + + + + +---------+ + + | (unknown) | (no date) | (unknown) | (unknown) | 37.6 | % | (unknown) | | | | | | | | | + + + + +---------+ + + | (unknown) | (no date) | (unknown) | (unknown) | 37.6 | % | 4544-3 | | | | | | | | | + + + + +---------+ + + | (unknown) | (no date) | (unknown) | (unknown) | 4.8 | mmol/l | (unknown) | | | | | | | | | + + + + +---------+ + + | (unknown) | (no date) | (unknown) | (unknown) | 4.8 | mmol/l | 2823-3 | | | | | | | | | + + + + +---------+ + + | (unknown) | (no date) | (unknown) | (unknown) | 50.7 | fl | (unknown) | | | | | | | | | + + + + +---------+ + + | (unknown) | (no date) | (unknown) | (unknown) | 50.7 | fl | 13203-5 | | | | | | | | | + + + + +---------+ + + | (unknown) | (no date) | (unknown) | (unknown) | 6 | (units | (unknown) | | | | | | | unknown) | | + + + + +---------+ + + | (unknown) | (no date) | (unknown) | (unknown) | 6 | (units | 59891-1 | | | | | | | unknown) | | + + + + +---------+ + + | (unknown) | (no date) | (unknown) | (unknown) | 8.9 | mg/dl | (unknown) | | | | | | | | | + + + + +---------+ + + | (unknown) | (no date) | (unknown) | (unknown) | 8.9 | mg/dl | 28856-9 | | | | | | | | | + + + + +---------+ + + | (unknown) | (no date) | (unknown) | (unknown) | 8.9 | mg/dl | (unknown) | | | | | | | | | + + + + +---------+ + + | (unknown) | (no date) | (unknown) | (unknown) | 9.6 | 10s9/l | 52154-7 | | | | | | | | | + + + + +---------+ + + | (unknown) | (no date) | (unknown) | (unknown) | 9.6 | 10s9/l | (unknown) | | | | | | | | | + + + + +---------+ + + + + | Result panel 94 | + + + + + + +------+---------+ + | (unknown) | (no date) | (unknown) | (unknown) | 96 | mg/dl | 2340-8 | | | | | | | | | + + + + +------+---------+ + | (unknown) | (no date) | (unknown) | (unknown) | 96 | mg/dl | (unknown) | | | | | | | | | + + + + +------+---------+ + + + | Result panel 95 | + + + + + + +---------+ + + | (unknown) | (no date) | (unknown) | (unknown) | >60 | | 41547-1 | | | | | | | ml/min/1.7 | | | | | | | | 3 m2 | | + + + + +---------+ + + | (unknown) | (no date) | (unknown) | (unknown) | >60 | | (unknown) | | | | | | | ml/min/1.7 | | | | | | | | 3 m2 | | + + + + +---------+ + + | (unknown) | (no date) | (unknown) | (unknown) | 0.72 | mg/dl | (unknown) | | | | | | | | | + + + + +---------+ + + | (unknown) | (no date) | (unknown) | (unknown) | 0.72 | mg/dl | 43793-2 | | | | | | | | | + + + + +---------+ + + | (unknown) | (no date) | (unknown) | (unknown) | 101.9 | fl | (unknown) | | | | | | | | | + + + + +---------+ + + | (unknown) | (no date) | (unknown) | (unknown) | 101.9 | fl | 787-2 | | | | | | | | | + + + + +---------+ + + | (unknown) | (no date) | (unknown) | (unknown) | 107 | mmol/l | (unknown) | | | | | | | | | + + + + +---------+ + + | (unknown) | (no date) | (unknown) | (unknown) | 107 | mmol/l | 2075-0 | | | | | | | | | + + + + +---------+ + + | (unknown) | (no date) | (unknown) | (unknown) | 11.0 | fl | 02831-2 | | | | | | | | | + + + + +---------+ + + | (unknown) | (no date) | (unknown) | (unknown) | 11.0 | fl | (unknown) | | | | | | | | | + + + + +---------+ + + | (unknown) | (no date) | (unknown) | (unknown) | 11.8 | 10s9/l | 76236-4 | | | | | | | | | + + + + +---------+ + + | (unknown) | (no date) | (unknown) | (unknown) | 11.8 | 10s9/l | (unknown) | | | | | | | | | + + + + +---------+ + + | (unknown) | (no date) | (unknown) | (unknown) | 112 | mg/dl | 2345-7 | | | | | | | | | + + + + +---------+ + + | (unknown) | (no date) | (unknown) | (unknown) | 112 | mg/dl | (unknown) | | | | | | | | | + + + + +---------+ + + | (unknown) | (no date) | (unknown) | (unknown) | 13 | mg/dl | (unknown) | | | | | | | | | + + + + +---------+ + + | (unknown) | (no date) | (unknown) | (unknown) | 13 | mg/dl | 3094-0 | | | | | | | | | + + + + +---------+ + + | (unknown) | (no date) | (unknown) | (unknown) | 13.2 | % | (unknown) | | | | | | | | | + + + + +---------+ + + | (unknown) | (no date) | (unknown) | (unknown) | 13.2 | % | 788-0 | | | | | | | | | + + + + +---------+ + + | (unknown) | (no date) | (unknown) | (unknown) | 141 | mmol/l | (unknown) | | | | | | | | | + + + + +---------+ + + | (unknown) | (no date) | (unknown) | (unknown) | 141 | mmol/l | 2951-2 | | | | | | | | | + + + + +---------+ + + | (unknown) | (no date) | (unknown) | (unknown) | 18.1 | (units | (unknown) | | | | | | | unknown) | | + + + + +---------+ + + | (unknown) | (no date) | (unknown) | (unknown) | 18.1 | (units | 3097-3 | | | | | | | unknown) | | + + + + +---------+ + + | (unknown) | (no date) | (unknown) | (unknown) | 187 | 10s9/l | 777-3 | | | | | | | | | + + + + +---------+ + + | (unknown) | (no date) | (unknown) | (unknown) | 187 | 10s9/l | (unknown) | | | | | | | | | + + + + +---------+ + + | (unknown) | (no date) | (unknown) | (unknown) | 27 | mmol/l | (unknown) | | | | | | | | | + + + + +---------+ + + | (unknown) | (no date) | (unknown) | (unknown) | 27 | mmol/l | 2028-9 | | | | | | | | | + + + + +---------+ + + | (unknown) | (no date) | (unknown) | (unknown) | 3.08 | 10s12/l | 789-8 | | | | | | | | | + + + + +---------+ + + | (unknown) | (no date) | (unknown) | (unknown) | 3.08 | 10s12/l | (unknown) | | | | | | | | | + + + + +---------+ + + | (unknown) | (no date) | (unknown) | (unknown) | 31.2 | g/dl | (unknown) | | | | | | | | | + + + + +---------+ + + | (unknown) | (no date) | (unknown) | (unknown) | 31.2 | g/dl | 786-4 | | | | | | | | | + + + + +---------+ + + | (unknown) | (no date) | (unknown) | (unknown) | 31.4 | % | (unknown) | | | | | | | | | + + + + +---------+ + + | (unknown) | (no date) | (unknown) | (unknown) | 31.4 | % | 4544-3 | | | | | | | | | + + + + +---------+ + + | (unknown) | (no date) | (unknown) | (unknown) | 31.8 | pg | (unknown) | | | | | | | | | + + + + +---------+ + + | (unknown) | (no date) | (unknown) | (unknown) | 31.8 | pg | 785-6 | | | | | | | | | + + + + +---------+ + + | (unknown) | (no date) | (unknown) | (unknown) | 4.3 | mmol/l | (unknown) | | | | | | | | | + + + + +---------+ + + | (unknown) | (no date) | (unknown) | (unknown) | 4.3 | mmol/l | 2823-3 | | | | | | | | | + + + + +---------+ + + | (unknown) | (no date) | (unknown) | (unknown) | 50.0 | fl | (unknown) | | | | | | | | | + + + + +---------+ + + | (unknown) | (no date) | (unknown) | (unknown) | 50.0 | fl | 57270-2 | | | | | | | | | + + + + +---------+ + + | (unknown) | (no date) | (unknown) | (unknown) | 7 | (units | (unknown) | | | | | | | unknown) | | + + + + +---------+ + + | (unknown) | (no date) | (unknown) | (unknown) | 7 | (units | 16499-4 | | | | | | | unknown) | | + + + + +---------+ + + | (unknown) | (no date) | (unknown) | (unknown) | 8.7 | mg/dl | (unknown) | | | | | | | | | + + + + +---------+ + + | (unknown) | (no date) | (unknown) | (unknown) | 8.7 | mg/dl | 87545-8 | | | | | | | | | + + + + +---------+ + + | (unknown) | (no date) | (unknown) | (unknown) | 8.7 | mg/dl | (unknown) | | | | | | | | | + + + + +---------+ + + | (unknown) | (no date) | (unknown) | (unknown) | 9.8 | g/dl | (unknown) | | | | | | | | | + + + + +---------+ + + | (unknown) | (no date) | (unknown) | (unknown) | 9.8 | g/dl | 718-7 | | | | | | | | | + + + + +---------+ + + + + | Result panel 96 | + + + + + + +-------+-------+ + | (unknown) | (no date) | (unknown) | (unknown) | 225 | sec | 3184-9 | | | | | | | | | + + + + +-------+-------+ + | (unknown) | (no date) | (unknown) | (unknown) | 225 | sec | (unknown) | | | | | | | | | + + + + +-------+-------+ + + + | Result panel 97 | + + + + + + +-------+-------+ + | (unknown) | (no date) | (unknown) | (unknown) | 278 | sec | 3184-9 | | | | | | | | | + + + + +-------+-------+ + | (unknown) | (no date) | (unknown) | (unknown) | 278 | sec | (unknown) | | | | | | | | | + + + + +-------+-------+ + Social History No information. Vital Signs + + + +---------+ | date | measurement | value | units | + + + +---------+ | 2022-10-11 00:00 | BMI | 29.3 | kg/m2 | + + + +---------+ | 2022-10-11 00:00 | BP_diastolic | 76 | mmHg | + + + +---------+ | 2022-10-11 00:00 | BP_systolic | 188 | mmHg | + + + +---------+ | 2022-10-11 00:00 | heart_rate | 69 | /min | + + + +---------+ | 2022-10-11 00:00 | height_metric | 152.4 | cm | + + + +---------+ | 2022-10-11 00:00 | height_standard | 60 | in | + + + +---------+ | 2022-10-11 00:00 | o2_saturation | 99 | % | + + + +---------+ | 2022-10-11 00:00 | respiration_rate | 15 | /min | + + + +---------+ | 2022-10-11 00:00 | temperature_metric | 36.67 | C | | | | | | + + + +---------+ | 2022-10-11 00:00 | | 98 | F | | | temperature_standar | | | | | d | | | + + + +---------+ | 2022-10-11 00:00 | weight_metric | 68.04 | kg | + + + +---------+ | 2022-10-11 00:00 | weight_standard | 150 | lb | + + + +---------+ | 2022-10-30 00:00 | BMI | 30.2 | kg/m2 | + + + +---------+ | 2022-10-30 00:00 | BP_diastolic | 69 | mmHg | + + + +---------+ | 2022-10-30 00:00 | BP_systolic | 173 | mmHg | + + + +---------+ | 2022-10-30 00:00 | heart_rate | 69 | /min | + + + +---------+ | 2022-10-30 00:00 | height_metric | 152.4 | cm | + + + +---------+ | 2022-10-30 00:00 | height_standard | 60 | in | + + + +---------+ | 2022-10-30 00:00 | o2_saturation | 96 | % | + + + +---------+ | 2022-10-30 00:00 | respiration_rate | 18 | /min | + + + +---------+ | 2022-10-30 00:00 | temperature_metric | 37.11 | C | | | | | | + + + +---------+ | 2022-10-30 00:00 | | 98.8 | F | | | temperature_standar | | | | | d | | | + + + +---------+ | 2022-10-30 00:00 | weight_metric | 70.1 | kg | + + + +---------+ | 2022-10-30 00:00 | weight_standard | 154.54 | lb | + + + +---------+ | 2022-11-11 00:00 | BMI | 7.3 | kg/m2 | + + + +---------+ | 2022-11-11 00:00 | height_metric | 304.8 | cm | + + + +---------+ | 2022-11-11 00:00 | height_standard | 120 | in | + + + +---------+ | 2022-11-11 00:00 | weight_metric | 68 | kg | + + + +---------+ | 2022-11-11 00:00 | weight_standard | 149.91 | lb | + + + +---------+ | 2022-11-13 00:00 | BP_diastolic | 56 | mmHg | + + + +---------+ | 2022-11-13 00:00 | BP_systolic | 117 | mmHg | + + + +---------+ | 2022-11-13 00:00 | heart_rate | 79 | /min | + + + +---------+ | 2022-11-13 00:00 | o2_saturation | 98 | % | + + + +---------+ | 2022-11-13 00:00 | respiration_rate | 18 | /min | + + + +---------+ | 2022-11-13 00:00 | temperature_metric | 36.67 | C | | | | | | + + + +---------+ | 2022-11-13 00:00 | | 98 | F | | | temperature_standar | | | | | d | | | + + + +---------+"
--- OUTSIDE RECORDS SUMMARY | ~2023-03-07 | XMS | Continuity of Care Document ---
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 Name | Role | Phone | + [...] | (no date) | Mild | [facility] | (unknown) | | | | [facility] | | + + + + + | (no date) | Codeine | [facility] | (unknown) | | | | Hospital | | + + + + + | (no date) | Morphine | [facility] | (unknown) | | | | Hospital | | + + + + + | (no date) | Codeine | [facility] | (unknown) | | | | Hospital | | + + + + + | (no date) | Hallucinations | [facility] | (unknown) | | | | Hospital | | + + + + + | (no date) | Morphine | [facility] | (unknown) | | | | Hospital | | + + + + + | (no date) | Penicillin | [facility] | (unknown) | | | | Hospital | | + + + + + | (no date) | Penicillin | [facility] | (unknown) | | | | Hospital | | + + + + + | (no date) | Morphine | [facility] | (unknown) | | | | Hospital [...] + | 2021-06-04 00:00 | Tdap | [facility] | + + + + | 2021-06-04 00:00 | Tdap | [facility] | + + + + Medications + + + + | date | description | facility | + + + + | 2022-10-11 00:00 | APIXABAN | [facility] | + + + + | 2022-10-30 00:00 | APIXABAN | [facility] | + + + + | 2022-11-13 00:00 | APIXABAN | [facility] | + + + + | 2022-10-11 00:00 | Psyllium Husk | [facility] | + + + + | 2022-10-30 00:00 | Psyllium Husk | [facility] | + + + + | 2022-11-13 00:00 | Psyllium Husk | [facility] | + + + + | 2022-10-11 00:00 | ACYCLOVIR | [facility] | + + + + | 2022-10-30 00:00 | ACYCLOVIR | [facility] | + + + + | 2022-11-13 00:00 | ACYCLOVIR | [facility] | + + + + | 2022-10-11 00:00 | | [facility] | | | TRIAMTERENE/HYDROCHLOROTHIA | | | | ZID | | + + + + | 2022-10-30 00:00 | | [facility] | | | TRIAMTERENE/HYDROCHLOROTHIA | | | | ZID | | + + + + | 2022-11-13 00:00 | | [facility] | | | TRIAMTERENE/HYDROCHLOROTHIA | | | | ZID | | + + + + | 2022-10-11 00:00 | IRBESARTAN | [facility] | + + + + | 2022-11-13 00:00 | IRBESARTAN | [facility] | + + + + | 2022-10-11 00:00 | CLOPIDOGREL BISULFATE | [facility] | + + + + | 2022-10-11 00:00 | CLOPIDOGREL BISULFATE | [facility] | + + + + | 2022-10-11 00:00 | CALCIUM CARBONATE | [facility] | + + + + | 2022-10-30 00:00 | CALCIUM CARBONATE | [facility] | + + + + | 2022-11-13 00:00 | CALCIUM CARBONATE | [facility] | + + + + | 2022-10-11 00:00 | ATORVASTATIN CALCIUM | [facility] | + + + + | 2022-10-30 00:00 | ATORVASTATIN CALCIUM | [facility] | + + + + | 2022-11-13 00:00 | ATORVASTATIN CALCIUM | [facility] | + + + + | 2022-10-30 00:00 | ASPIRIN | [facility] | + + + + | 2022-11-13 00:00 | ASPIRIN | [facility] | + + + + | 2022-10-11 00:00 | CITALOPRAM HYDROBROMIDE | [facility] | + + + + | 2022-10-30 00:00 | CITALOPRAM HYDROBROMIDE | [facility] | + + + + | 2022-11-13 00:00 | CITALOPRAM HYDROBROMIDE | [facility] | + + + + | 2022-10-11 00:00 | HYDROCHLOROTHIAZIDE | [facility] | + + + + | 2022-10-11 00:00 | SIMVASTATIN | [facility] | + + + + | 2022-10-30 00:00 | SIMVASTATIN | [facility] | + + + + | 2022-11-13 00:00 | SIMVASTATIN | [facility] | + + + + | 2022-10-11 00:00 | ACETAMINOPHEN | [facility] | + + + + | 2022-10-30 00:00 | ACETAMINOPHEN | [facility] | + + + + | 2022-11-13 00:00 | ACETAMINOPHEN | [facility] | + + + + | 2022-10-30 00:00 | Cholecalciferol (Vitamin | [facility] | | | D3) | | + + + + | 2022-11-13 00:00 | Cholecalciferol (Vitamin | [facility] | | | D3) | | + + + + | 2022-10-11 00:00 | LEVOTHYROXINE SODIUM | [facility] | + + + + | 2022-10-30 00:00 | LEVOTHYROXINE SODIUM | [facility] | + + + + | 2022-11-13 00:00 | LEVOTHYROXINE SODIUM | [facility] | + + + + | 2022-10-11 00:00 | LOPERAMIDE HCL | [facility] | + + + + | 2022-10-30 00:00 | LOPERAMIDE HCL | [facility] | + + + + | 2022-11-13 00:00 | LOPERAMIDE HCL | [facility] | + + + + | 2022-11-13 00:00 | Loperamide HCl | [facility] | + + + + | 2022-10-11 00:00 | LOSARTAN POTASSIUM | [facility] | + + + + Problems + + + + | date | description | facility | + + + + | 2019-11-28 00:00 | 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 | | + + + + | 2019-11-28 00:00 | 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 | | + + + + | 2019-11-28 20:30:30 | 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 | [facility] | + + + + | 2021-06-04 00:00 | Facial laceration | [facility] | + + + + | 2021-06-04 00:00 | Facial laceration | [facility] | + + + + | 2021-06-04 00:00 | Injury of head | [facility] | + + + + | 2021-06-04 00:00 | Injury of head | [facility] | + + + + | 2021-06-04 00:00 | Fracture of styloid | [facility] | | | process of radius | | + + + + | 2021-06-04 00:00 | Fracture of styloid | [facility] | | | process of radius | | + + + + | 2022-10-11 00:00 | 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 | | + + + + | 2022-10-11 00:00 | 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 | | + + + + | 2022-10-11 00:00 | Vision loss of right eye | [facility] | + + + + | 2022-10-11 00:00 | Vision loss of right eye | [facility] | + + + + [...] + + | 2022-10-11 13:13 | OTHER [employer] F[employer]ER AND CTO (CURRENT) | [facility] | | | DRUG [...] | 2022-10-30 00:00 | Anterior epistaxis | [facility] | + + + + | 2022-10-30 00:00 | Anterior epistaxis | [facility] | + + + + | 2022-11-11 00:00 | Anemia | [facility] | + + + + | 2022-11-11 00:00 | Gastrointestinal | [facility] | | | hemorrhage | | + + + + Procedures + + + + | date | description | facility | + + + + | 2022-11-12 00:00 | Esophagogastroduodenoscopy | [facility] | | | (EGD) | | + + + + | 2022-11-13 00:00 | Colonoscopy | [facility] | + + + + | 2022-11-13 00:00 | Colonoscopy | [facility] | + + + + | 2022-11-12 00:00 | Esophagogastroduodenoscopy | [facility] | | | (EGD) | [...] | (unknown) | | | | | Brain | value) | unknown) | | | [...] (unknown) | (unknown) | >60 | | 41436-2 | | | | | | | [...] | (unknown) | 0.79 | mg/dl | 36918-6 | | | | | | | [...] | (unknown) | 10.8 | fl | 84410-8 | | | | | | | [...] | (unknown) | 50.7 | fl | 04089-8 | | | | | | | | | + + + + +---------+ + + | (unknown) | (no date) | (unknown) | (unknown) | 6 | (units | (unknown) | | | | | | | unknown) | | + + + + +---------+ + + | (unknown) | (no date) | (unknown) | (unknown) | 6 | (units | 99744-9 | | | | | | | unknown) | | + + + + +---------+ + + | (unknown) | (no date) | (unknown) | (unknown) | 8.9 | mg/dl | (unknown) | | | | | | | | | + + + + +---------+ + + | (unknown) | (no date) | (unknown) | (unknown) | 8.9 | mg/dl | 49322-4 | | | | | | | | | + + + + +---------+ + + | (unknown) | (no date) | (unknown) | (unknown) | 8.9 | mg/dl | (unknown) | | | | | | | | | + + + + +---------+ + + | (unknown) | (no date) | (unknown) | (unknown) | 9.6 | 10s9/l | 40325-2 | | | | | | | [...] (unknown) | (unknown) | >60 | | 96997-7 | | | | | | | [...] | (unknown) | 0.72 | mg/dl | 14041-4 | | | | | | | [...] | (unknown) | 11.0 | fl | 95606-0 | | | | | | | | | + + + + +---------+ + + | (unknown) | (no date) | (unknown) | (unknown) | 11.0 | fl | (unknown) | | | | | | | | | + + + + +---------+ + + | (unknown) | (no date) | (unknown) | (unknown) | 11.8 | 10s9/l | 30557-6 | | | | | | | [...] | (unknown) | 50.0 | fl | 94675-1 | | | | | | | | | + + + + +---------+ + + | (unknown) | (no date) | (unknown) | (unknown) | 7 | (units | (unknown) | | | | | | | unknown) | | + + + + +---------+ + + | (unknown) | (no date) | (unknown) | (unknown) | 7 | (units | 81666-8 | | | | | | | unknown) | | + + + + +---------+ + + | (unknown) | (no date) | (unknown) | (unknown) | 8.7 | mg/dl | (unknown) | | | | | | | | | + + + + +---------+ + + | (unknown) | (no date) | (unknown) | (unknown) | 8.7 | mg/dl | 32403-6 | | | | | | | [...]
[~2023-03-07 01:19] MED LIST changes: +IMODIUM A-D2 M2 PO; -IMODIUM A-D2 MG PO; +LO-DOSE ASPIRIN81 MG PO; +VITAMIN D350 MCG PO
[2023-03-07 03:55] VITALS: BP 168/78
== END 2023-03-07 03:57 | disposition home or self-care (01) ==
LOC: ED 01:19
DX: S00.03XA Contusion of scalp, initial encounter (principal); I10 Essential (primary) hypertension; W18.12XA Fall from or off toilet with subsequent striking against object, initial encounter; Z88.5 Allergy status to narcotic agent; Z86.73 Personal history of transient ischemic attack (TIA), and cerebral infarction without residual deficits; Z87.891 Personal history of nicotine dependence; Z88.0 Allergy status to penicillin; Z79.899 Other long term (current) drug therapy; Z79.82 Long term (current) use of aspirin
CPT/HCPCS: 36415; 70450; 71045; 72125; 80053; 81003; 85025; 99284 25; G0480

== ENCOUNTER 2024-08-22 16:07 | Emergency (ER) | payer MEDICARE ==
[~2024-08-22] VITALS: Ht 152.4 cm; Wt 67.1 kg
[~2024-08-22 16:07] MED LIST changes: +IRBESARTAN150 MG PO; +LATANOPROST2.5 ML OPTH
[2024-08-22] MEDS ORDERED: AMLODIPINE BES2.5 MG PO (18:01)
[2024-08-22] MEDS ORDERED: SODIUM CHLORIDE 0.9% 1,000 ML IV ONE (18:15)
[2024-08-22] MEDS ORDERED: ondansetron HCL 4 MG/2 ML VIAL IV ONE (18:15)
[2024-08-22 18:32] LABS: BASOPHILS 0.5 % (0-2); EOSINOPHILS 0.2 % (0-6); HEMOGLOBIN 14.7 g/dL (12.0-18.0); LYMPHOCYTES 18.9 % (24-44); MCH 32.8 (27-36); MCHC 33.4 g/dl (30-36); MCV 98.3 fl (81-99); MONOCYTES 11.4 % (0-12); PLATELET COUNT 148 K/uL (140-440); RBC 4.47 M/ul (4.3-5.7); RDW 14.7 (10.5-15.0)
[2024-08-22 18:47] LABS: ALBUMIN/GLOBULIN RATIO 0.95 (1.1-2.4); ANION GAP 16.2 (7-21); BILIRUBIN, TOTAL 0.3 ng/dL (0.2-1.0); BUN/CREATININE RATIO 20.61 (6.0-28.6); CALCIUM 9.3 mg/dL (8.5-10.1); CREATININE, SERUM 1.31 mg/dL (0.55-1.02); POTASSIUM 4.2 mmol/L (3.5-5.1); PROTEIN, TOTAL 8.2 g/dL (6.4-8.2)
[2024-08-22 18:50] LABS: INFLUENZA B NAA NEGATIVE (NEGATIVE); RESPIRATORY SYNCYTIAL VIR NAA NEGATIVE (NEGATIVE)
[2024-08-22] MEDS ORDERED: KETOROLAC TROMETHAMINE 15 MG/ML VIAL IV ONE (19:15)
[2024-08-22] MEDS ORDERED: CEFTRIAXONE/SODIUM CHLORIDE 2 GM/100 ML PIGGYBACK IV ONE (19:15)
[2024-08-22] MEDS ORDERED: LOPERAMIDE HCL 2 MG CAP PO ONE (19:15)
[2024-08-22] MEDS ORDERED: ACETAMINOPHEN 325 MG TAB PO ONE (19:15)
[2024-08-22] MEDS ORDERED: DOXYCYCLINE HY100 MG PO (19:32)
[2024-08-22] MEDS ORDERED: ONDANSETRON ODT8 MG PO (19:32)
[2024-08-22 20:10] VITALS: BP 135/74
== END 2024-08-22 21:09 | disposition home or self-care (01) ==
LOC: ED 16:07
PROVIDERS: Emergency Medicine
DX: J10.1 Influenza due to other identified influenza virus with other respiratory manifestations (principal); E86.0 Dehydration; I10 Essential (primary) hypertension; E78.5 Hyperlipidemia, unspecified; H54.61 Unqualified visual loss, right eye, normal vision left eye; Z87.891 Personal history of nicotine dependence; Z86.73 Personal history of transient ischemic attack (TIA), and cerebral infarction without residual deficits; Z88.0 Allergy status to penicillin; Z88.5 Allergy status to narcotic agent; Z79.890 Hormone replacement therapy; Z79.82 Long term (current) use of aspirin; Z79.899 Other long term (current) drug therapy
CPT/HCPCS: 36415; 71045; 80053; 85025; 87502; 96361; 96374; 96375; 99285-25; A9270; J0696; J1885; J2405; J7030; U0002